=== PATIENT | female | born 1950 | race Caucasian/White ===

== ENCOUNTER 2018-11-06 10:47 | Outpatient (CLI) | payer MEDICARE, BC, SELFPAY ==
[2018-11-06 11:15] LABS: HCT 39.7 % (36.0-46.0); HGB 13.5 g/dL (12.0-15.5); Mean Corpuscular Hemoglobin 28.7 pg (27.0-33.0); Mean Corpuscular Volume 84.3 fL (80-95); Mean Platelet Volume 9.6 fL (8.0-11.0); Platelet Count 316 x1000/uL (130-400); RBC 4.71 m/cumm (4.00-5.20); RBC Distribution Width 11.4 % (11.7-14.6); White Blood Cell Count 4.16 k/cumm (4.4-10.8)
[2018-11-06 12:08] LABS: ALT 26 U/L (12-78); AST 18 U/L (15-37); Albumin 3.6 g/dL (3.4-5.0); Alkaline Phosphatase 111 U/L (46-116); Anion Gap 9.4 mmol/L (3-11); BUN 17 mg/dL (7-18); Bilirubin, Total 0.6 mg/dL (0.2-1.0); CO2 27.6 mmol/L (21.0-32.0); CREATININE 0.69 mg/dL (0.55-1.02); Chloride 106 mmol/L (98-107); Cholesterol 129 mg/dL (50-200); Glucose 92 mg/dL (70-100); HDL Cholesterol 58 mg/dL (40-60); LDL CHOLESTEROL 57 mg/dL (<100); Potassium 4.3 mmol/L (3.5-5.1); Sodium 143 mmol/L (136-145); TSH (W/Ref FT4) 0.01 uIU/mL (0.358-3.74); Total Protein 6.6 g/dL (6.4-8.2); Triglyceride 69 mg/dL (30-150)
[2018-11-06 12:54] LABS: FREE T4 2.53 ng/dL (0.76-1.46)
== END 2018-11-06 11:07 ==
PROVIDERS: PCP Nurse Practitioner; Visit Provider Nurse Practitioner
DX: I10 Essential (primary) hypertension (principal); E78.5 Hyperlipidemia, unspecified; E05.90 Thyrotoxicosis, unspecified without thyrotoxic crisis or storm; G80.9 Cerebral palsy, unspecified
CPT/HCPCS: 36415; 80053; 80061; 83721; 85027; 84439; 84443

== ENCOUNTER 2019-02-18 10:14 | Outpatient (CLI) | payer MEDICARE, BC, SELFPAY ==
[2019-02-18 14:31] LABS: TSH (W/Ref FT4) 1.82 uIU/mL (0.358-3.74)
== END 2019-02-18 10:34 ==
PROVIDERS: PCP Nurse Practitioner; Visit Provider Nurse Practitioner
DX: E05.90 Thyrotoxicosis, unspecified without thyrotoxic crisis or storm (principal)
CPT/HCPCS: 84443

== ENCOUNTER 2019-11-04 09:33 | Outpatient (CLI) | payer MEDICARE, BC, SELFPAY ==
[2019-11-04 11:15] LABS: ALT 22 U/L (14-59); AST 20 U/L (15-37); Albumin 4.1 g/dL (3.4-5.0); Alkaline Phosphatase 101 U/L (46-116); Anion Gap 7.7 mmol/L (3-11); BUN 30 mg/dL (7-18); Bilirubin, Total 0.7 mg/dL (0.2-1.0); CO2 28.3 mmol/L (21.0-32.0); CREATININE 0.75 mg/dL (0.55-1.02); Calcium 8.8 mg/dL (8.5-10.1); Calculated LDL 83 mg/dL (<100); Chloride 110 mmol/L (98-107); Cholesterol 168 mg/dL (<200); Glucose 93 mg/dL (74-106); HDL Cholesterol 66 mg/dL (40-60); Potassium 4.1 mmol/L (3.5-5.1); Sodium 146 mmol/L (136-145); TSH (W/Ref FT4) 4.11 uIU/mL (0.36-3.74); Total Protein 6.8 g/dL (6.4-8.2); Triglyceride 98 mg/dL (<150)
[2019-11-04 11:34] LABS: FREE T4 1.11 ng/dL (0.76-1.46)
== END 2019-11-04 09:53 ==
PROVIDERS: PCP Nurse Practitioner; Visit Provider Nurse Practitioner
DX: E05.90 Thyrotoxicosis, unspecified without thyrotoxic crisis or storm (principal); E78.5 Hyperlipidemia, unspecified; I10 Essential (primary) hypertension; E66.3 Overweight
CPT/HCPCS: 36415; 80053; 80061; 84439; 84443

== ENCOUNTER 2020-04-15 01:14 | Outpatient (CLI) | payer MEDICARE, BC, SELFPAY ==
[2020-04-15 10:27] LABS: TSH (W/Ref FT4) 5.99 uIU/mL (0.36-3.74)
[2020-04-15 10:46] LABS: FREE T4 0.98 ng/dL (0.76-1.46)
== END 2020-04-15 01:34 ==
PROVIDERS: PCP Nurse Practitioner; Visit Provider Nurse Practitioner
DX: E05.90 Thyrotoxicosis, unspecified without thyrotoxic crisis or storm (principal)
CPT/HCPCS: 36415; 84439; 84443

== ENCOUNTER 2020-07-08 01:07 | Outpatient (CLI) | payer MEDICARE, BC, SELFPAY ==
[2020-07-08 09:53] LABS: FREE T4 1.17 ng/dL (0.76-1.46); TSH 4.75 uIU/mL (0.36-3.74)
== END 2020-07-08 01:27 ==
PROVIDERS: PCP Nurse Practitioner; Visit Provider Nurse Practitioner
DX: E05.90 Thyrotoxicosis, unspecified without thyrotoxic crisis or storm (principal)
CPT/HCPCS: 36415; 84439; 84443

== ENCOUNTER 2021-01-07 02:12 | Outpatient (CLI) | payer MEDICARE, BC, SELFPAY ==
[2021-01-07 09:12] LABS: HCT 40.8 % (36.0-46.0); HGB 13.6 g/dL (11.2-15.7); MCH 29.2 pg (27.0-33.0); MCHC 33.3 % (32.0-36.0); MCV 87.6 fL (80-95); MPV 9.5 fL (8.0-11.0); Platelet Count 267 10^3/uL (130-400); RBC 4.66 10^6/uL (3.93-5.22); RDW 11.4 % (11.7-14.6); RDW-SD 36.7 fL
[2021-01-07 10:03] LABS: ALT 31 U/L (14-59); AST 21 U/L (15-37); Albumin 4.3 g/dL (3.4-5.0); Alkaline Phosphatase 96 U/L (46-116); Anion Gap 9.4 mmol/L (3-11); BUN 25 mg/dL (7-18); Bilirubin, Total 0.7 mg/dL (0.2-1.0); CO2 28.6 mmol/L (21.0-32.0); CREATININE 0.8 mg/dL (0.55-1.02); Calcium 8.9 mg/dL (8.5-10.1); Calculated LDL 79 mg/dL (<100); Chloride 105 mmol/L (98-107); Cholesterol 163 mg/dL (<200); Glucose 90 mg/dL (74-106); HDL Cholesterol 70 mg/dL (40-60); Potassium 4.2 mmol/L (3.5-5.1); Sodium 143 mmol/L (136-145); TSH 0.89 uIU/mL (0.36-3.74); Total Protein 6.8 g/dL (6.4-8.2); Triglyceride 72 mg/dL (<150)
[2021-01-07 10:22] LABS: FREE T4 1.37 ng/dL (0.76-1.46)
== END 2021-01-07 02:13 | disposition home or self-care (01) ==
LOC: LBO 02:12
PROVIDERS: PCP Nurse Practitioner; Visit Provider Nurse Practitioner
DX: E78.5 Hyperlipidemia, unspecified (principal); I10 Essential (primary) hypertension; E05.90 Thyrotoxicosis, unspecified without thyrotoxic crisis or storm; L80 Vitiligo; E66.3 Overweight
CPT/HCPCS: 36415; 80053; 80061; 85027; 84439; 84443

== ENCOUNTER 2022-01-14 02:27 | Outpatient (CLI) | payer MEDICARE, BC, SELFPAY ==
[2022-01-14 09:44] LABS: HCT 40.9 % (36.0-46.0); HGB 13.3 g/dL (11.2-15.7); MCH 29.2 pg (27.0-33.0); MCHC 32.5 % (32.0-36.0); MCV 89.9 fL (80-95); MPV 9.9 fL (8.0-11.0); Platelet Count 244 10^3/uL (130-400); RBC 4.55 10^6/uL (3.93-5.22); RDW 11.2 % (11.7-14.6); RDW-SD 37.1 fL; WBC 4.23 10^3/uL (4.4-10.8)
[2022-01-14 10:43] LABS: ALT 30 U/L (14-59); AST 17 U/L (15-37); Alkaline Phosphatase 97 U/L (46-116); Anion Gap 9.4 mmol/L (3-11); BUN 18 mg/dL (7-18); Bilirubin, Total 0.7 mg/dL (0.2-1.0); CO2 27.6 mmol/L (21.0-32.0); CREATININE 0.9 mg/dL (0.55-1.02); Calcium 8.8 mg/dL (8.5-10.1); Calculated LDL 79 mg/dL (<100); Chloride 106 mmol/L (98-107); Cholesterol 167 mg/dL (<200); Glucose 97 mg/dL (74-106); HDL Cholesterol 78 mg/dL (40-60); Sodium 143 mmol/L (136-145); TSH (W/Ref FT4) 2.49 uIU/mL (0.36-3.74); Total Protein 6.7 g/dL (6.4-8.2); Triglyceride 54 mg/dL (<150)
== END 2022-01-14 02:28 | disposition home or self-care (01) ==
LOC: LBO 02:27
PROVIDERS: PCP Nurse Practitioner; Visit Provider Nurse Practitioner
DX: I10 Essential (primary) hypertension (principal); E78.5 Hyperlipidemia, unspecified; E05.90 Thyrotoxicosis, unspecified without thyrotoxic crisis or storm; E66.3 Overweight
CPT/HCPCS: 36415; 80053; 80061; 85027; 84443

== ENCOUNTER → 2022-07-28 02:54 | Outpatient (CLI) | payer MEDICARE, BC, SELFPAY ==
--- NOTE | 2022-07-28 08:15 | DI.DEXA_ITS ---
Exam(s) XR DEXA BONE DENSITY W/WO KOBY EXAM: XR DEXA BONE DENSITY W/WO KOBY CLINICAL HISTORY: f/u osteopenia,SCREENING FOR OSTEOPOROSIS, Z78.0 TECHNIQUE: COMPARISON: No exams were available for comparison FINDINGS: Lateral Spine Image: Unremarkable. No compression deformities identified. Left hip: Total T-Score: -1.4 Total Z-Score: 0.4 T- and Z-scores: Findings are consistent with osteopenia. Lumbar Spine: Total T-Score: -1.0 Total Z-Score: 1.4 T- and Z-scores: Within normal limits. IMPRESSION: No evidence of osteoporosis.
== END ==
PROVIDERS: PCP Nurse Practitioner; Visit Provider Nurse Practitioner
DX: M85.88 Other specified disorders of bone density and structure, other site (principal); Z78.0 Asymptomatic menopausal state; Z13.820 Encounter for screening for osteoporosis
CPT/HCPCS: 77080

== ENCOUNTER 2023-01-12 01:51 | Outpatient (CLI) | payer MEDICARE, BC, SELFPAY ==
[2023-01-12 11:31] LABS: ALT 27 U/L (14-59); AST 17 U/L (15-37); Albumin 4.1 g/dL (3.4-5.0); Alkaline Phosphatase 112 U/L (46-116); BUN 20 mg/dL (7-18); Bilirubin, Total 0.6 mg/dL (0.2-1.0); CREATININE 0.8 mg/dL (0.55-1.02); Calcium 8.9 mg/dL (8.5-10.1); Calculated LDL 85 mg/dL (<100); Chloride 105 mmol/L (98-107); Cholesterol 176 mg/dL (<200); Estimated GFR 77.27 (mL/min/1.73m2); Glucose 92 mg/dL (74-106); HDL Cholesterol 74 mg/dL (40-60); Potassium 3.7 mmol/L (3.5-5.1); Sodium 142 mmol/L (136-145); TSH (W/Ref FT4) 3.43 uIU/mL (0.36-3.74); Total Protein 7.3 g/dL (6.4-8.2); Triglyceride 85 mg/dL (<150)
== END 2023-01-12 01:52 | disposition home or self-care (01) ==
PROVIDERS: PCP Nurse Practitioner; Visit Provider Nurse Practitioner
DX: I10 Essential (primary) hypertension (principal); E78.5 Hyperlipidemia, unspecified; E05.90 Thyrotoxicosis, unspecified without thyrotoxic crisis or storm; E66.3 Overweight
CPT/HCPCS: 36415; 80053; 80061; 84443

== ENCOUNTER 2023-02-12 11:31 | Emergency (ER) | payer MEDICARE, BC, SELFPAY ==
[2023-02-12 11:41] VITALS: BP 160/87; PULSE 107; RESP 18; TEMP 36.8; O2SAT 99
[2023-02-12 12:09] LABS: Bilirubin Negative (Negative); Blood Negative (Negative); Clarity Clear (Clear); Glucose Negative (Negative); Ketones Negative (Negative); Leukocyte Esterase Trace (Negative); Nitrite Negative (Negative); Urobilinogen 0.2 mg/dL (Up to 0.2); pH 5.5 (5-8)
[2023-02-12 12:21] LABS: Bacteria Rare HPF (Negative); C & S Indicated? Yes; Casts Negative LPF (Negative); Crystals Negative HPF (Negative); Epithelial Cells Few HPF (Negative); Mucus Negative (Negative); RBC 0-2 HPF (0-2)
--- NOTE | 2023-02-12 12:38 | W.ED.GENAD ---
Discharge Plan Disposition Patient Disposition: Home Condition: Stable Discharge Details Clinical Impression: Acute UTI Primary Care Provider: Kaelyn Portillo ED Provider: Andres Montes Home Meds and New Rx's Prescriptions: New nitrofurantoin monohyd/m-cryst [Macrobid] 100 mg capsule 100 mg PO Q12H 5 Days Qty: 10 0RF Rx Instructions: must administer with a meal/food Continued cholecalciferol (vitamin D3) 50 mcg (2,000 unit) capsule 50 mcg PO DAILY omeprazole 20 mg capsule,delayed release(DR/EC) 20 mg PO DAILY Qty: 90 3RF methimazole 5 mg tablet 5 mg PO DAILY Qty: 90 3RF multivitamin [Daily Multi-Vitamin] 1 EACH tablet 1 ea PO DAILY atorvastatin 10 mg tablet 10 mg PO DAILY Qty: 90 3RF losartan 50 mg tablet 50 mg PO DAILY Qty: 90 3RF naproxen sodium [Aleve] 220 mg capsule 220 mg PO BID PRNQty: 2 Discharge Instructions Instructions: Urinary Tract Infection in Women (ED) Additional Instructions: Please take your medication as prescribed and follow-up with your primary care provider later this week for recheck of symptoms. If you develop any new or significant worsening of symptoms feel free to return the emergency department for reassessment. Referrals: Kaelyn Portillo, [employer] [Primary Care Provider] - 5 days (for reassessment) Discharge Data Discharge Date/Time-TO BE ENTERED AT DEPARTURE: 02/12/23 12:44 Medical Decision Making Patient presenting to the emergency department for chief complaint of urinary symptoms over the past 4 days. Patient states urgency and some incontinence. Patient otherwise states generalized malaise and denies all other symptoms. Physical exam is unremarkable with no worrisome findings. Given patient have urinary symptoms we will check urinalysis. Urinalysis shows trace leukocyte esterase and WBCs of 5-10 with some bacteria present. Reflexive culture was ordered. I do feel that patient has clinical symptoms that also do match urinary tract infection so we will start patient on antibiotic. After discussion of diagnosis and plan of care patient has no further needs, questions, or concerns and states clear understanding to return to the emergency department for any worsening symptoms. This documentation was generated using [employer] system, please disregard any oddities of phrase or misspellings. HPI General Mode of arrival: ambulatory. Date/Time Provider Initiated Documentation: 02/12/23 12:00. Limitations to Documentation: no limitations. Information obtained by: patient and RN notes reviewed. History of Present Illness 72 year old F presents to the emergency department with the chief complaint of Urinary frequency, incontinence, described as moderate, Patient started experiencing this day(s) (4) and it has been constant. No relieving factors improve symptom(s), No exacerbating factors reported . Patient notes no other symptoms.. Patient did receive the following treatments prior to arrival, none Related Data Home Medications Medication Instructions Recorded Confirmed multivitamin (Daily Multi-Vitamin 1 ea PO DAILY 10/28/16 07/21/22 tablet) cholecalciferol (vitamin D3) 50 50 mcg PO DAILY 07/21/22 07/21/22 mcg (2,000 unit) capsule omeprazole 20 mg capsule,delayed 20 mg PO DAILY #90 caps 07/21/22 07/21/22 release atorvastatin 10 mg tablet 10 mg PO DAILY #90 tabs 11/08/22 losartan 50 mg tablet 50 mg PO DAILY #90 tab-caps 11/15/22 methimazole 5 mg tablet 5 mg PO DAILY #90 tabs 01/19/23 01/19/23 naproxen sodium 220 mg capsule 220 mg PO BID PRN ##2 01/19/23 (Aleve) nitrofurantoin 100 mg PO Q12H 5 days #10 caps 02/12/23 monohydrate/macrocrystals 100 mg capsule (Macrobid) Previous Rx's Medication Instructions Recorded omeprazole 20 mg capsule,delayed 20 mg PO DAILY #90 caps 07/21/22 release atorvastatin 10 mg tablet 10 mg PO DAILY #90 tabs 11/08/22 losartan 50 mg tablet 50 mg PO DAILY #90 tab-caps 11/15/22 methimazole 5 mg tablet 5 mg PO DAILY #90 tabs 01/19/23 nitrofurantoin 100 mg PO Q12H 5 days #10 caps 02/12/23 monohydrate/macrocrystals 100 mg capsule (Macrobid) Allergies Allergy/AdvReac Type Severity Reaction Status Date / Time lisinopril AdvReac Intermediate Cough Verified 01/19/23 08:10 codeine AdvReac Unknown intolerant Verified 01/19/23 08:10 sucralfate [From Carafate] AdvReac Unknown Intolerant Verified 01/19/23 08:10 General Stated Complaint: Urinary ELIAS: 3 Review of Systems Constitutional Constitutional: Denies body ache(s), Denies chills, Denies fever(s), Reports malaise and Denies weakness Gastrointestinal Gastrointestinal: Denies abdominal pain, Denies nausea and Denies vomiting Genitourinary Genitourinary: Reports as per HPI, Denies hematuria, Denies difficulty voiding, Reports post void dribbling, Denies dysuria, Reports urinary incontinence and Reports urinary urgency Neurologic Neurologic: Denies confusion and Denies weakness Psychiatric Psychiatric: Denies confusion PFSH All Active Problems Acute UTI (Acute) Bilateral retinoschisis (Acute) Colonoscopy refused (Acute) Mammogram declined (Acute) Cerebral palsy (Acute 10/28/16) ataxia Gastroesophageal reflux disease (Acute 04/22/16) Hyperlipidemia (Acute 03/15/12) PCEq 9.9%; LDL baseline 149 Hypertension (Acute 08/06/14) goal 140/90 Hyperthyroidism (Acute 08/06/14) Dr Finch manages Osteopenia (Acute 08/06/14) Dr Finch manages Overweight (Acute 08/06/14) Vitiligo (Acute 04/27/17) Social History Smoking/Tobacco Use Status: Never Smoking risk assessment performed?: Yes Alcohol Intake: never Substance use type: does not use Caregiver/Support person: No Household members: spouse Housing: house Number of Children: 0 Communication Needs: None Pets and animals: Yes Pets and animals: cat(s) Current gender identity: female What is your relationship status?: Panel score (0-1 are the most socially isolated patients): 1 What type of physical activity do you participate in: irregular exercise Duration: other Details: now that used to cart, has increased her activity w/ adl's. nothing routine Frequency: daily Seatbelt use: always Working smoke detector in home: Yes Fire extinguisher in home: Yes Carbon monox detector in home: Yes Firearms in home: Yes Firearms unloaded and locked: Yes Do you feel safe at home: Yes Exam Const General: cooperative and no acute distress Orientation: alert, awake and oriented x3 Resp Effort & Inspection: normal respiratory effort and able to speak in complete sentences Auscultation: clear to auscultation bilaterally Cardio Rate: regular rate Rhythm: regular rhythm Heart Sounds: S1 normal and S2 normal GI Palpation: nontender Back/Spine/Pelvis Back: no CVA tenderness Neuro General: patient alert, patient awake and patient oriented x3 Extrem General: capillary refill normal Course Vital Signs Vital signs: Vital Signs Temperature 36.8 C 02/12/23 11:41 Pulse 107 H 02/12/23 11:41 Respiratory Rate 18 02/12/23 11:41 Blood Pressure 160/87 H 02/12/23 11:41 Pulse Oximetry 99 02/12/23 11:41 Temperature 36.8 C 02/12/23 11:41 Temperature Source Skin 02/12/23 11:41 Pulse 107 H 02/12/23 11:41 Respiratory Rate 18 02/12/23 11:41 Blood Pressure 160/87 H 02/12/23 11:41 Blood Pressure Position Sitting 02/12/23 11:41 Pulse Oximetry 99 02/12/23 11:41 Oxygen Delivery Method Room Air 02/12/23 11:41 Oxygen Flow Rate 0 02/12/23 11:41 Pain Level 0 02/12/23 11:41 Lab/Test Results Lab/Test Results: 02/12/23 11:55 Urine - Reflex from Ua Urine Culture - Pending Laboratory Tests Range/Units 02/12/23 11:55 Urine Color (Yellow) Yellow Urine Clarity (Clear) Clear Urine pH (5-8) 5.5 Ur Specific [place] (1.005-1.025) 1.010 Urine Protein (Negative) mg/dL Negative Urine Ketones (Negative) mg/dL Negative Urine Blood (Negative) Negative Urine Nitrite (Negative) Negative Urine Bilirubin (Negative) Negative Urine Urobilinogen (Up to 0.2) mg/dL 0.2 Ur Leukocyte Esterase (Negative) Trace H Urine RBC (0-2) HPF 0-2 Urine WBC (0-5) HPF 5-10 Ur Epithelial Cells (Negative) HPF Few Urine Crystals (Negative) HPF Negative Urine Bacteria (Negative) HPF Rare Urine Casts (Negative) LPF Negative Urine Mucus (Negative) Negative Ur Culture Indicated? Yes Urine Glucose (Negative) mg/dL Negative
[2023-02-12 12:44] VITALS: BP 130/82; PULSE 80; RESP 18; TEMP 36.8; O2SAT 99
[2023-02-12] MEDS: MacroBID 100 MG CAP PO (12:44)
== END 2023-02-12 12:44 | disposition home or self-care (01) ==
PROVIDERS: Emergency Provider Nurse Practitioner Family; PCP Nurse Practitioner
DX: N39.0 Urinary tract infection, site not specified (principal)
CPT/HCPCS: 99283; 81003; 81015; 87086

== ENCOUNTER 2023-04-18 00:51 | Outpatient (CLI) | payer MEDICARE, BC, SELFPAY ==
--- NOTE | 2023-04-18 06:41 | DI.CT_ITS ---
Exam(s) CT ABDOMEN PELVIS W EXAM: CT ABDOMEN PELVIS W CLINICAL HISTORY: rectal bleeding,change in stools,k62.5 TECHNIQUE: Imaging Protocol: Axial computed tomography images with coronal and sagittal reformatted images were created and reviewed CONTRAST MATERIAL: Intravenous: Omnipaque 350 Contrast volume:100 mL Oral: Yes COMPARISON: No exams were available for comparison FINDINGS: ABDOMEN: Lung Bases: Small hiatal hernia. Liver: Normal density. There are few small round hypodensities in the liver. They are too small for further characterization, but likely reflect small cysts. No suspicious hepatic masses are seen. Portal, Superior Mesenteric, and Splenic Veins: Unremarkable. Gallbladder and Biliary Tract: No radiodense calculus or dilation. Pancreas: Normal density, no abnormal calcifications or inflammatory process. Spleen: Normal. Adrenals: No masses seen. Kidneys: Normal size, contour and axis. No radiodense stones or obstructive uropathy. No masses seen. Abdominal Aorta: Abdominal portion non-dilated. Atherosclerosis. Bowel: There is a moderate amount of stool in the rectal vault. There is diverticulosis seen in the colon but no evidence to suggest acute diverticulitis. There is a moderate amount of stool seen thro ughout the colon. There is no evidence of bowel obstruction or bowel wall thickening. The distal si gmoid colon is decompressed which may be due to underdistention. Appendix is unremarkable. Peritoneal Cavity: There is no ascites. Partially calcified soft tissue masses are seen in the left abdomen. The largest measures 2.9 x 0.9 cm. No free air. Lymph Nodes: Within normal limits. Bones: Within normal limits for the patient's age. There is a right convex curvature of the thoracol umbar spine. Soft Tissues: Unremarkable. PELVIS: Bladder: Symmetric distention, no gross wall thickening. Reproductive Organs: There is a cystic and solid mass in the right adnexa measuring 6.9 x 5.2 cm. Th e left ovary measures 2.6 x 1.9 cm. Lymph Nodes: Within normal limits. Bones: Within normal limits for the patient's age. IMPRESSION: 1. 6.9 x 5.2 cm cystic and solid right adnexal mass which is likely ovarian in origin. Neoplasm shou ld be considered. Correlation with pelvic ultrasound or MRI of the pelvis should be considered for f urther evaluation. 2. Diverticulosis of the colon without evidence of acute diverticulitis. 3. Moderate amount of stool in the colon and rectal vault. 4. Partially calcified mass is seen in the abdomen. Omental metastatic disease should be excluded in this patient. Unexpected findings RADIATION DOSE DELIVERED: 862.52mGy.cm Total DLP DATA REPOSITORY: All CT scans at this facility are submitted to the National Radiology Data Registry (NRDR) Dose Index Registry (DIR) with the [employer] (ACR). RADIATION OPTIMIZATION: All CT scans at this facility use at least one of these dose optimization te chniques: automated exposure control; mA and/or kV adjustment per patient size (includes targeted exa ms where dose is matched to clinical indication); or iterative reconstruction.
[2023-04-18 07:54] LABS: CREATININE 0.9 mg/dL (0.55-1.02); Estimated GFR 66.67 (mL/min/1.73m2)
[2023-04-18] MEDS: Barium Sulfate 2% W/V-Berry Smoothie 450 ML BTL PO (08:23)
[2023-04-18] MEDS: Omnipaque 350 MG/ML 500 ML BTL-Imaging package IJ (09:43)
[2023-04-18] MEDS: Normal Saline - Diluent 50 ML VIAL IJ (09:43)
[2023-04-18] MEDS: Normal Saline Flush 10 ML SYR IVP (09:46)
== END 2023-04-18 01:11 ==
LOC: DI 00:56
PROVIDERS: PCP Nurse Practitioner; Visit Provider Emergency Medicine
DX: K62.5 Hemorrhage of anus and rectum (principal); K57.30 Diverticulosis of large intestine without perforation or abscess without bleeding; C56.1 Malignant neoplasm of right ovary
CPT/HCPCS: 74177; 82565

== ENCOUNTER → 2023-07-31 02:00 | Outpatient (CLI) | payer MEDICARE, BC, SELFPAY ==
--- NOTE | 2023-07-31 09:00 | DI.US_ITS ---
Exam(s) US THYROID EXAM: US THYROID CLINICAL HISTORY: incidentally found nodule, E04.1. TECHNIQUE: Ultrasound thyroid performed using standard protocol. COMPARISON: No exams were available for comparison FINDINGS: ISTHMUS: 3 mm RIGHT LOBE: Size: 5.6 x 2.0 x 2.5 cm Echogenicity: Diffusely heterogeneous. Vascularity: Normal. Nodules: 2. 3.7 x 1.7 x 1.7 centimeter mixed cystic and solid lesion, isoechoic, not taller than wid e. No echogenic foci, smooth margins, TR 3. FNA could be considered. LEFT LOBE: Size: 5.8 x 2.1 x 2.5 cm Echogenicity: Diffusely heterogeneous. Vascularity: Normal. Nodules: 1. Lower pole. 2.8 x 2.6 x 2.1 centimeter solid nodule isoechoic, taller than wide, darlene h margins without echogenic foci, TR 4, FNA recommended. 3. Mid pole. 2.7 x 2.0 x 2.1 centimeter solid isoechoic nodule with smooth margins without echogeni c foci, TR 3, FNA could be considered. OTHER FINDINGS: None. IMPRESSION: Heterogeneous thyroid with multiple nodules. Due to size, FNA could be considered. DATA REPOSITORY:
== END ==
PROVIDERS: PCP Nurse Practitioner; Visit Provider Nurse Practitioner
DX: E04.1 Nontoxic single thyroid nodule (principal)
CPT/HCPCS: 76536

== ENCOUNTER 2023-08-29 03:05 | Outpatient (RCR) | payer MEDICARE, BC, SELFPAY ==
[2023-08-29 08:24] LABS: Abs Immature Grans 0.01 10^3/uL (0.0-0.06); Absolute Basophil Count 0.12 10^3/uL (0.0-0.2); Absolute Eosinophil Count 0.07 10^3/uL (0.0-0.7); Absolute Lymphocyte Count 1.81 10^3/uL (1.2-3.4); Absolute Monocyte Count 0.85 10^3/uL (0.1-0.8); Absolute Neutrophil Count 4.95 10^3/uL (1.2-6.7); Basophils % 1.5; Eosinophils % 0.9; HCT 35.3 % (36.0-46.0); HGB 11.2 g/dL (11.2-15.7); Immature Grans % 0.1; Lymphocytes % 23.2; MCH 26.3 pg (27.0-33.0); MCHC 31.7 % (32.0-36.0); MCV 83 fL (80-95); Monocytes % 10.9; Neutrophils % 63.4; RBC 4.26 10^6/uL (3.93-5.22); RDW 16.3 % (11.7-14.6); RDW-SD 48.4 fL; WBC 7.81 10^3/uL (4.4-10.8)
[2023-08-29] MEDS: Normal Saline Flush 10 ML SYR IVP (08:37)
[2023-08-29 08:44] LABS: ALT 17 U/L (14-59); AST 11 U/L (15-37); Albumin 3.1 g/dL (3.4-5.0); Alkaline Phosphatase 94 U/L (46-116); Anion Gap 11.1 mmol/L (3-11); BUN 22 mg/dL (7-18); Bilirubin, Total 0.4 mg/dL (0.2-1.0); CO2 23.9 mmol/L (21.0-32.0); CREATININE 1.1 mg/dL (0.55-1.02); Calcium 9.2 mg/dL (8.5-10.1); Chloride 103 mmol/L (98-107); Glucose 192 mg/dL (74-106); Potassium 3.9 mmol/L (3.5-5.1); Sodium 138 mmol/L (136-145); Total Protein 7.1 g/dL (6.4-8.2)
[2023-08-29 08:47] LABS: Diff Comment Diff Reviewed; Platelet Count 798 10^3/uL (130-400); RBC Morphology Normal
[2023-08-30 11:39] LABS: CA 125 8 U/mL (<30)
== END 2023-08-31 23:59 | disposition home or self-care (01) ==
LOC: INF 03:05
PROVIDERS: PCP Nurse Practitioner; Visit Provider Internal Medicine
DX: C56.9 Malignant neoplasm of unspecified ovary (principal); Z45.2 Encounter for adjustment and management of vascular access device
CPT/HCPCS: 36591; 80053; 86304; 85025

== ENCOUNTER → 2023-09-20 13:21 | Outpatient (BNVA) | payer MEDICARE, BC, SELFPAY | PROVIDERS: PCP Nurse Practitioner; Referring Provider Nurse Practitioner; Visit Provider Physical Therapy Assistant | DX: T81.31XD Disruption of external operation (surgical) wound, not elsewhere classified, subsequent encounter (principal); Z98.890 Other specified postprocedural states; Z90.710 Acquired absence of both cervix and uterus | CPT/HCPCS: 99214 ==

== ENCOUNTER 2023-09-26 01:45 | Outpatient (RCR) | payer MEDICARE, BC, SELFPAY ==
[2023-09-26 08:09] LABS: Abs Immature Grans 0.01 10^3/uL (0.0-0.06); Absolute Basophil Count 0.07 10^3/uL (0.0-0.2); Absolute Eosinophil Count 0.22 10^3/uL (0.0-0.7); Absolute Lymphocyte Count 1.78 10^3/uL (1.2-3.4); Absolute Monocyte Count 0.89 10^3/uL (0.1-0.8); Absolute Neutrophil Count 3.38 10^3/uL (1.2-6.7); Basophils % 1.1; Eosinophils % 3.5; HCT 34.5 % (36.0-46.0); Immature Grans % 0.2; MCH 26.4 pg (27.0-33.0); MCHC 31.9 % (32.0-36.0); MCV 83 fL (80-95); MPV 8.9 fL (8.0-11.0); Neutrophils % 53.2; Platelet Count 516 10^3/uL (130-400); RBC 4.16 10^6/uL (3.93-5.22); RDW 19.9 % (11.7-14.6); RDW-SD 60.1 fL; WBC 6.35 10^3/uL (4.4-10.8)
[2023-09-26] MEDS: Normal Saline Flush 10 ML SYR IVP (08:22)
[2023-09-26 08:24] LABS: ALT 15 U/L (14-59); AST 11 U/L (15-37); Albumin 3.1 g/dL (3.4-5.0); Alkaline Phosphatase 102 U/L (46-116); Anion Gap 10.1 mmol/L (3-11); BUN 18 mg/dL (7-18); Bilirubin, Total 0.4 mg/dL (0.2-1.0); CO2 25.9 mmol/L (21.0-32.0); Calcium 8.8 mg/dL (8.5-10.1); Chloride 104 mmol/L (98-107); Estimated GFR 58.75 (mL/min/1.73m2); Glucose 142 mg/dL (74-106); Potassium 3.7 mmol/L (3.5-5.1); Sodium 140 mmol/L (136-145); Total Protein 7.3 g/dL (6.4-8.2)
[2023-09-26 17:56] LABS: CA 125 7 U/mL (<30)
== END 2023-10-01 23:59 | disposition home or self-care (01) ==
LOC: INF 01:45
PROVIDERS: PCP Nurse Practitioner; Visit Provider Internal Medicine
DX: C56.9 Malignant neoplasm of unspecified ovary (principal); Z45.2 Encounter for adjustment and management of vascular access device
CPT/HCPCS: 36591; 80053; 86304; 85025

== ENCOUNTER → 2023-10-03 10:53 | Outpatient (BNVA) | payer MEDICARE, BC, SELFPAY | PROVIDERS: PCP Nurse Practitioner; Referring Provider Nurse Practitioner; Visit Provider Physical Therapy Assistant | DX: T81.31XD Disruption of external operation (surgical) wound, not elsewhere classified, subsequent encounter (principal); Z90.710 Acquired absence of both cervix and uterus; Z90.722 Acquired absence of ovaries, bilateral; Z90.79 Acquired absence of other genital organ(s) | CPT/HCPCS: 99214 ==

== ENCOUNTER 2023-10-03 11:14 | Outpatient (REF) | payer MEDICARE, BC, SELFPAY | END 2023-10-03 11:15 | disposition home or self-care (01) | LOC: LBN 11:14 | PROVIDERS: PCP Nurse Practitioner; Visit Provider Physical Therapy Assistant | DX: T81.31XA Disruption of external operation (surgical) wound, not elsewhere classified, initial encounter (principal); B95.61 Methicillin susceptible Staphylococcus aureus infection as the cause of diseases classified elsewhere | CPT/HCPCS: 87077; 87070; 87075; 87186; 87205 ==

== ENCOUNTER → 2023-10-12 01:38 | Outpatient (CLI) | payer MEDICARE, BC, SELFPAY ==
[2023-10-12] MEDS: Breeza Beverage 473 ML BTL 946 ML PO (09:12)
[2023-10-12] MEDS: Omnipaque 350 MG/ML 50 ML BTL IJ (09:13)
[2023-10-12] MEDS: Omnipaque 350 MG/ML 500 ML BTL-Imaging package 100 ML IJ (11:04)
[2023-10-12] MEDS: Normal Saline - Diluent 50 ML VIAL IJ (11:04)
--- NOTE | 2023-10-12 11:10 | DI.CT_ITS ---
Exam(s) CT ABDOMEN PELVIS W EXAM: CT ABDOMEN PELVIS W CLINICAL HISTORY: Draining wound,? abscess vs fistula,S/PTAH,BSO,[id number]. TECHNIQUE: Imaging Protocol: Axial computed tomography images with coronal and sagittal reformatted images were created and reviewed CONTRAST MATERIAL: Intravenous: Omnipaque-350 100cc Oral: Yes. Oral contrast was also administered for bowel opacification. COMPARISON: CT CT ABDOMEN PELVIS W from 04/18/2023 FINDINGS: VISUALIZED LUNG BASES: No nodules nor pleural effusions evident. ABDOMEN: There is no ascites. LIVER: Again noted is a small benign cyst in the liver measuring 7 mm, unchanged. No new focal hepat ic lesions nor dilated intrahepatic ducts. GALLBLADDER/BILIARY: No obvious gallbladder pathology. CBD is not dilated. PANCREAS: There is mass in the pancreatic tail which measures 0.7 x 1.7 x 1.7 cm. This is uniformly hyperdense.. Average density 75 HU no other pancreatic lesions identified. The pancreatic duct is n ot dilated. No peripancreatic fluid collections. SPLEEN: The spleen is now surgically absent. ADRENALS: There are no new significant adrenal masses. KIDNEYS:No cysts evident. No solid renal masses. No calculi nor hydronephrosis.. ABDOMINAL AORTA: Abdominal aorta is not enlarged. LYMPH NODES:There is no retroperitoneal nor paraaortic adenopathy. ABDOMINAL WALL: There has been interval surgery.. There is an abnormal fluid collection in the anter ior abdominal wall slightly left of center and in the subcutaneous tissues. Consistent with probable abscess. This involves the anterior abdominal wall medial left rectus musculature and extends into the subcutaneous fat tissue layer. Appears multicompartmental. Appears to communicate to the region of the umbilicus. The cephalocaudal length of this combined induration and abscess abscess measures approximately 9 cm., as measured on the sagittal reconstructed images. Contains some gas. Subjacen t opacified small bowel loops appear unremarkable and there is no bowel obstruction. GI: No bowel obstruction or free air. PELVIS: GI: No evidence of appendicitis.No evidence of sigmoid diverticulitis. LYMPH NODES: There is no intrapelvic nor inguinal adenopathy. REPRODUCTIVE: Uterus surgically absent. No abnormal adnexal masses. URINARY BLADDER: Urinary bladder wall is grossly thickened and has appearance of severe cystitis. Th ere is no gas in the bladder wall evident. OSSEOUS: No fractures and no significant osseous lesions. IMPRESSION: 1. There is anterior abdominal wall induration an abscess as described above involving the left rectu s muscle and extending into the subcutaneous fat and exhibiting maximum width of 3 cm and cephalocaud al length of approximately 9 cm. 2. 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 3. There is a round uniformly hyperdense mass in the distal most aspect of the pancreatic tail measur ing 1.7 by 1.7 x 1.7 cm. Either hemorrhagic cyst or neoplasm. No other focal pancreatic findings. Pancreatic duct is not dilated. No peripancreatic fluid collections. No pancreatic calcifications. 4. Findings in the urinary bladder consistent with severe cystitis. Previous hysterectomy. No abnormal masses in the pelvis. RADIATION DOSE DELIVERED: 1,150.42mGy.cm Total DLP DATA REPOSITORY: All CT scans at this facility are submitted to the National Radiology Data Registry (NRDR) Dose Index Registry (DIR) with the [employer] (ACR). RADIATION OPTIMIZATION: All CT scans at this facility use at least one of these dose optimization te chniques: automated exposure control; mA and/or kV adjustment per patient size (includes targeted exa ms where dose is matched to clinical indication); or iterative reconstruction.
== END ==
PROVIDERS: PCP Nurse Practitioner; Visit Provider Physical Therapy Assistant
DX: L02.211 Cutaneous abscess of abdominal wall (principal); Z90.81 Acquired absence of spleen; N30.00 Acute cystitis without hematuria
CPT/HCPCS: 74177; Q9967

== ENCOUNTER 2023-10-13 16:44 | Outpatient (REF) | payer MEDICARE, BC, SELFPAY ==
[2023-10-13 13:36] LABS: Bilirubin Negative (Negative); Blood Moderate (Negative); Clarity Sl Cloudy (Clear); Glucose Negative (Negative); Ketones Negative (Negative); Leukocyte Esterase Moderate (Negative); Nitrite Negative (Negative); Specific Gravity <= 1.005 (1.005-1.025); Urobilinogen 0.2 mg/dL (Up to 0.2); pH 6.5 (5-8)
[2023-10-13 13:47] LABS: Epithelial Cells Rare HPF (Negative); RBC 20-50 HPF (0-2); WBC 20-50 HPF (0-5)
[2023-10-13 13:48] LABS: Bacteria Moderate HPF (Negative); C & S Indicated? Yes; Casts Negative LPF (Negative); Crystals Few Amorphous HPF (Negative); Mucus Trace (Negative)
== END 2023-10-13 16:45 | disposition home or self-care (01) ==
LOC: LBN 16:44
PROVIDERS: PCP Nurse Practitioner; Visit Provider Physical Therapy Assistant
DX: N30.00 Acute cystitis without hematuria (principal); R82.998 Other abnormal findings in urine
CPT/HCPCS: 81003; 81015; 87086

== ENCOUNTER → 2023-10-17 11:54 | Outpatient (BNVA) | payer MEDICARE, BC, SELFPAY | PROVIDERS: PCP Nurse Practitioner; Referring Provider Nurse Practitioner; Visit Provider Physical Therapy Assistant | DX: Z01.818 Encounter for other preprocedural examination (principal) ==

== ENCOUNTER 2023-10-20 06:15 | Day surgery (SDC) | payer MEDICARE, BC, SELFPAY ==
--- NOTE | 2023-10-19 14:21 | W.PM.DSUDISC ---
Date of service: 10/20/23 Time of Service: 10:45 Discharge Plan Disposition Patient Disposition: Home Condition: Good Discharge Details Reason For Visit: Abdominal wall abscess Attending Provider: Eduar Campbell Primary Care Provider: Kaelyn Portillo Home Meds and New Rx's Prescriptions: New tramadol 50 mg tablet 50 mg PO Q8H PRNQty: 15 0RF Rx Instructions: Take 1 tablet by mouth if needed for more severe pain. Do not drive while using this medication. Continued losartan 50 mg tablet 50 mg PO DAILY Qty: 90 0RF cholecalciferol (vitamin D3) 50 mcg (2,000 unit) capsule 50 mcg PO DAILY methimazole 5 mg tablet 5 mg PO DAILY Qty: 90 3RF Bexsero 50-50-50-25 mcg/0.5 mL syringe 0.5 ml IM ONCE Qty: 0.5 0RF Rx Instructions: Pharmacy: please administer Menveo C-[id number]-135-Dip (PF) 10-5 mcg/0.5 mL solution 0.5 ml IM ONCE Qty: 0.5 0RF Rx Instructions: Pharmacy: please administer multivitamin [Daily Multi-Vitamin] 1 EACH tablet 1 ea PO DAILY atorvastatin 10 mg tablet 10 mg PO DAILY Qty: 90 3RF naproxen sodium [Aleve] 220 mg capsule 220 mg PO BID PRNQty: 2 cefpodoxime 200 mg tablet 200 mg PO BID Rx Instructions: must administer with a meal/food metronidazole 500 mg tablet 500 mg PO BID docusate sodium 100 mg capsule 100 mg PO BID PRN (Reason: constipation) Desitin 40 % paste 1 applic topical QD-BID Rx Instructions: To affected area Discharge Instructions Additional Instructions: Sheila, we were able to drain the infected collection in your belly wall today just like we planned. Everything went very smoothly. Like we talked about afterwards, we did use a special vacuum dressing to help kick start some healing, and give us a little time to see how this responds. You should not have to do anything special with this dressing until next week. You can shower with it, I do any of the things that you otherwise enjoy doing. If you receive any supplies from the dressing company in the mail before your office visit, please be sure to bring them with you to the office. I am sorry that the pump itself is a little bit cumbersome, but hopefully it will not be too bad. I do think it will help with the wound overall. I will keep an eye out for the reports looking for bacteria in the wound, and let you know in the meantime, if we need to add any antibiotics. However, I do not expect any drastic changes before next week. You are welcome to use heating pads and ice packs on your belly wall if that helps with any of your discomfort. Tylenol, ibuprofen, and any other [id number] medications are all fine to use to help with any pain that you might experience in the days to come. I also put in a prescription for a medication called tramadol. You can pick this up and keep it just in case the other medicines are not enough. Stand Alone Forms: Anesthesia Discharge Inst., Anes.Nerve Block Instructions, Lelia Ford ([facility]) Referrals: Eduar Campbell MD [ [facility] STAFF PHYSICIAN] - Activity:: Activity as Tolerated Diet:: As Tolerated Discharge Orders Discharge Orders: Discharge Order (Routine); Ordered 10/19/23 Ordered By: Eduar Campbell DS: Diagnosis Discharge Diagnosis (1) Wound disruption, post-op, skin: Status: Acute Asessment and Plan: Status post incision, drainage and debridement; follow-up in the office next week
--- NOTE | 2023-10-19 14:22 | W.PM.OP ---
Date of service: 10/20/23 Time of Service: 09:21 Operative Note Operative Note DATE OF PROCEDURE: 10/20/23 PRE-OP DIAGNOSIS: Abdominal wall abscess Abdominal wall abscess, with possible infected mesh PROCEDURE: Incision and drainage, and debridement of abdominal wall abscess cavity with tissue for Gram stain and culture. Application of negative pressure wound therapy SURGEON: Eduar Campbell [employer] [facility] MANAGER: Uyen Kendall ANESTHESIA TYPE: General LMA/ETT Refer to Anesthesia Record ESTIMATED BLOOD LOSS: 50 PATHOLOGY: other (Abdominal abscess for Gram stain and culture) COMPLICATIONS: None Patient was transported to: PACU Patient's condition: stable Implants: [employer] negative pressure wound therapy with single black sponge Indications: Sheila is a 73-year-old woman who underwent laparotomy for ovarian cancer. As part of that operation, she also underwent appendectomy and what sounds like a low anterior resection. As best I can tell, her postoperative course was complicated by an anastomotic leak that was treated with total parenteral nutrition and antibiotics. In the weeks followed, she had a chronic nonhealing wound of her surgical site. She underwent a CAT scan of the abdomen and pelvis that demonstrated an abdominal wall abscess cavity. Findings: Approximately 13 cm x 8 cm x 4 cm abscess cavity of the anterior abdominal wall with suspected infected polypropylene material Procedure Description: After the induction of general endotracheal anesthesia, and bilateral tap blocks by the anesthesia team, I prepped and draped the anterior abdominal wall in the usual fashion. I incised the wound just around the umbilicus with a scalpel, and gently dissected down into the abscess cavity. Once I could clearly see into the abscess pocket, I gently inserted my finger and probes down along the inferior margin. It tracked well underneath the skin, and what seem to be superficial to the fascia. I then incised the skin along this line, which was mostly the inferior portion of the previous surgical incision. I dissected down through healthy subcutaneous fat into the abscess cavity. The floor of the pocket appeared to be disintegrating polypropylene. It seemed to be a greater quantity than I would expect for Maxon or PDS fascial closure stitches. Furthermore, it was quite fibrous, and gave the appearance of a polypropylene mesh. I debrided as much of this as possible back to the edges where it appeared to become more incorporated into the soft tissue. It was impossible to tell if this was actual fascia, or if perhaps it was superficial or deep to otherwise disintegrated fascia. The floor of the cavity was quite smooth, and again felt like I would expect from some type of implanted substrate. There was a small amount of tracking that was a little more cephalad under the incision as well. I opened the skin and subcutaneous tissues here to ensure that the base of the wound was completely opened. I irrigated it copiously. I did not see any signs of succus that would suggest an enterocutaneous fistula. After irrigation, I used a Versajet on the #9 setting to debride as much abnormal tissue as I could. Prior to this, I did sharply excise some of the surrounding soft tissue for Gram stain and culture. Once the wound was all clean, irrigated again, and carefully examined for hemostasis. There were a few punctate areas that required electrocautery in the subcutaneous fat. Otherwise it was no worrisome bleeding. Given the uncertainty uncertainty of what exactly is happening here, I felt the safest thing to do is apply negative pressure wound therapy and see what the culture data demonstrates. Therefore, using a [employer] prepackaged negative pressure set up, I cut a sponge to fit the wound. It measured approximately 13 cm long by 8 cm wide by 4 cm deep. The sponge was laid into the cavity, and the other components were applied according to the gear grinder's instructions. The device was set up at -125 mmHg where the pressure, and great care was taken to spare the healthy skin around the defect. Negative pressure was applied as expected, there was no evidence of any leak. Patient was then allowed awaken from anesthesia and transferred to the recovery unit.
[2023-10-20] VITALS (9 sets, daily range): BP systolic 125–166; BP diastolic 72–95; PULSE 82–116; RESP 9–20; TEMP 36–36.4; O2SAT 96–98; BMI 26.4
--- NOTE | 2023-10-20 06:23 | ANES.PREOP_ITS ---
General Info Date of Service Date Performed: 10/20/23 Height: 5 ft 5 in Weight: 72.121 kg Body Mass Index (BMI): 26.4 Surgical Procedure: Operation Date: 10/20/23 07:40 Proposed Procedure Side Surgeon p I&D of Abscess within Abdominal Wall/Laparotomy Incision, Possible Wound VAC Placement Eduar Campbell MD Meds Allergies and Home Medications Allergies Allergy/AdvReac Type Severity Reaction Status Date / Time lisinopril AdvReac Intermediate Cough Verified 10/20/23 06:46 codeine AdvReac Unknown intolerant Verified 10/20/23 06:46 sucralfate [From Carafate] AdvReac Unknown Intolerant Verified 10/20/23 06:46 Home Medication Medication Instructions Recorded multivitamin (Daily Multi-Vitamin 1 ea PO DAILY 10/28/16 tablet) cholecalciferol (vitamin D3) 50 50 mcg PO DAILY 07/21/22 mcg (2,000 unit) capsule atorvastatin 10 mg tablet 10 mg PO DAILY #90 tabs 11/08/22 methimazole 5 mg tablet 5 mg PO DAILY #90 tabs 01/19/23 naproxen sodium 220 mg capsule 220 mg PO BID PRN ##2 01/19/23 (Aleve) cefpodoxime 200 mg tablet 200 mg PO BID 06/30/23 docusate sodium 100 mg capsule 100 mg PO BID PRN constipation 06/30/23 metronidazole 500 mg tablet 500 mg PO BID 06/30/23 zinc oxide-cod liver oil 40 % 1 applic topical QD-BID 06/30/23 topical paste (Desitin) mening vac A,C,Y,W135 dip (PF) 10 0.5 ml IM ONCE #0.5 mL 07/25/23 mcg-5 mcg/0.5 mL IM solution (Menveo A-M-U-W-135-Dip (PF)) meningococcal B vac,4-cmp 50 0.5 ml IM ONCE #0.5 mL 07/25/23 mcg-50 mcg-50 mcg-25 mcg/0.5mL IM syringe (Bexsero) losartan 50 mg tablet 50 mg PO DAILY #90 tab-caps 10/19/23 Current Visit Medications: Current Medications Generic Name Dose Route Start Last Admin Trade Name Freq PRN Reason Stop Dose Admin Acetaminophen 1,000 mg 10/20/23 06:00 Acetaminophen 500 Mg Tab PO 10/20/23 23:59 PREOP TRANG Celecoxib 200 mg 10/20/23 06:00 Celecoxib 200 Mg Cap PO 10/20/23 23:59 PREOP TRANG Gabapentin 300 mg 10/20/23 06:00 Gabapentin 300 Mg Cap PO 10/20/23 23:59 PREOP TRANG Ringer's Solution 1,000 mls @ 80 mls/hr 10/20/23 06:00 IV 10/20/23 23:59 INFUSION [facility] Cefazolin Sodium/Dextrose 2 gm in 50 mls @ 100 mls/hr 10/20/23 06:00 Ancef Duplex IVPB 10/20/23 23:59 PREOP [facility] IV Miscellaneous Supplies 1 each 10/20/23 06:00 Iv Access IV 10/20/23 23:59 DIRECTED TRANG Morphine Sulfate 2 mg 10/19/23 14:23 Morphine 4 Mg/Ml Syr IVP 11/18/23 14:22 Q1H PRN PRN Sodium Chloride 0 ml 10/20/23 06:00 Normal Saline Flush 10 Ml Syr IV 10/20/23 23:59 PRN PRN Sodium Chloride 0 ml 10/20/23 06:00 Normal Saline 10 Ml Vial IJ 10/20/23 23:59 DIRECTED PRN Sterile Water 0 ml 10/20/23 06:00 Water,Injection,Sterile 10 Ml Vial IJ 10/20/23 23:59 DIRECTED PRN Tramadol HCl 100 mg 10/19/23 14:23 Tramadol 50 Mg Tab PO 11/18/23 14:22 Q6H PRN PRN Pain PFSH Active Problems Active Problems: Problem Status Onset Code Wound disruption, post-op, skin T81.31XA S/P TURNER-BSO Z90.710, Z90.722, Z90.79 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) History of hysterectomy with bilateral oophorectomy (06/08/23) [facility] laparoscopic Tobacco Smoking/Tobacco Use Status: Never Alcohol Alcohol Intake: never Substance Use Substance use type: does not use Vital Signs and Lab Results Lab Results Blood Type / Crossmatch: No Data to Display Complete Blood Count: White Blood Count 6.35 10^3/uL (4.4-10.8) 09/26/23 07:55 Red Blood Count 4.16 10^6/uL (3.93-5.22) 09/26/23 07:55 Hemoglobin 11.0 g/dL (11.2-15.7) L 09/26/23 07:55 Hematocrit 34.5 % (36.0-46.0) L 09/26/23 07:55 Platelet Count 516 10^3/uL (130-400) H 09/26/23 07:55 Complete Metabolic Panel: Sodium 140 mmol/L (136-145) 09/26/23 07:55 Potassium 3.7 mmol/L (3.5-5.1) 09/26/23 07:55 Chloride 104 mmol/L (98-107) 09/26/23 07:55 Carbon Dioxide 25.9 mmol/L (21.0-32.0) 09/26/23 07:55 BUN 18 mg/dL (7-18) 09/26/23 07:55 Creatinine 1.0 mg/dL (0.55-1.02) 09/26/23 07:55 Est GFR (CKD-EPI 2020) 58.75 (mL/min/1.73m2) 09/26/23 07:55 Calcium 8.8 mg/dL (8.5-10.1) 09/26/23 07:55 Albumin 3.1 g/dL (3.4-5.0) L 09/26/23 07:55 Glucose 142 mg/dL (74-106) H 09/26/23 07:55 Liver Function Panel: Alanine Aminotransferase (ALT/SGPT) 15 U/L (14-59) 09/26/23 07: 55 Aspartate Amino Transf (AST/SGOT) 11 U/L (15-37) L 09/26/23 07: 55 Coagulation Panel: No Data to Display Cardiac Panel: No Data to Display Arterial Blood Gas: No Data to Display Venous Blood Gas: No Data to Display Pancreas Panel: No Data to Display Thyroid Panel: No Data to Display Infectious Disease: No Data to Display Blood Cultures: No Data to Display Toxicology Panel: No Data to Display Imaging and Studies Imaging and Studies Study information below may be from another EMR and interpreted by another provider. Please see original notes in EMR for more complete details. Other Study Summary:: past CTs of abdomen/pelvis and U/S thyroid reviewed and results in chart Anesthesia Assessment and Plan Anesthesia History Personal History: No History of Anesthesia Complications Family History: No Family History of Anesthesia Complications Exercise Tolerance Exercise Tolerance: Metabolic Equivalents<4 Pertinent Negatives Pertinent Negatives: No Symptoms of GERD, No Major Cardiovascular Symptoms or Complaints, No Major Pulmonary Symptoms or Complaints and No History of CVA/TIA Cardiac & Pulmonary Exam Cardiac Exam: Normal S1/S2 Heart Sounds Pulmonary Exam: Clear Bilateral Breath Sounds Implantable Cardiac Device Does patient have a Pacemaker or an ICD?: No Airway Exam Known Difficult Airway: No Mallampati Class: 3 Mouth Opening: Normal (> 3cm) Thyromental Distance: Less than 3 cm Neck Range of Motion: Full ROM Neck Circumference: Normal Teeth Condition: Normal Dentition ASA Classification ASA Score: ASA 3 (Urgent case) Emergency Case?: No NPO Status NPO Status: NPO Clears >2 hours, Solids >8 hours Anesthesia Plan Resuscitation Status: Full Code Anesthesia Technique: General Anesthesia Airway Planned: Endotracheal Tube Pain Management: Surgeon and patient request nerve block (Bilateral TAPs) Monitors Used: Standard Monitors and SedLine
[2023-10-20] MEDS: Acetaminophen 500 MG TAB 1000 MG PO (06:42)
[2023-10-20] MEDS: Gabapentin 300 MG CAP PO (06:43)
[2023-10-20] MEDS: Celecoxib 200 MG CAP PO (06:43)
[2023-10-20] MEDS: Lactated Ringers 1,000 ML 80 ML IV (07:25)
[2023-10-20] MEDS: ceFAZolin 2 GM/50 ML BAG IVPB (08:15)
--- NOTE | 2023-10-20 08:33 | W.ANESNERVE ---
Nerve Block Single Injection Procedure Date and Time Date Performed: 10/20/23 Procedure Start: 07:54 Location Where Procedure Performed Procedure Location: Operating Room Procedure Stop: 08:15 Reason Performed: Postoperative Analgesia Requesting Provider: Eduar Campbell Timeout Performed Timeout Performed: Yes Monitoring Used ECG, Blood Pressure, SpO2 and ETCO2 Sterility Sterility: Hand Hygiene, Surgical Cap, Surgical Mask, Sterile Gloves and Chlorhexidine Sedation Given During Procedure Sedation Given (Indicate Dose Given): No Sedation given Patient Mental Status Patient Mental Status: Performed under general anesthesia Nerve Block 1st Nerve Block: Laterality: Bilateral Block Type: TAP Bilateral Ultrasound Image Saved?: Yes Needle / Catheter Used: 100mm SonoPlex II Local Anesthetic Bolus (Indicate Dose Given): Injected in 3-5ml increments after negative blood aspiration, Half of Total block solution given into each side, Bupivacaine 0.25% Dose:: 40 ml and Exparel Dose:: 20 ml Additives (Indicate Dose Given): Normal Saline (for hydrodissection) Ultrasound: Sterile probe cover and gel used Nerve Stimulator: Not Used Paresthesia: None Procedure Tolerated: No Complications and Patient tolerated well Procedure Outcome: Successful Procedure Comment: DAREN Roberson assisted but did not fully perform the block. US image was difficult and washed out, as was unclear Cipriano Schumacher, took over. Attempted to improve with change in settings but still technically difficult block. Performed By: Alexander Abraham
--- NOTE | 2023-10-20 09:48 | W.ANESPOSTOP ---
Postoperative Evaluation Date, Time and Location Date Performed: 10/20/23 Time Performed: 10:30 Patient Location: Day Surgery Unit Vital Signs Most Recent Imported Vital Signs: Most Recent Vital Signs Temp Pulse Resp BP Pulse Ox 36.4 C L 85 20 153/91 H 97 10/20/23 09:44 10/20/23 09:44 10/20/23 09:44 10/20/23 09:44 10/20/23 09:44 Pain Score Most Recent Pain Score: Most Recent Pain Score Pain Level 0 10/20/23 06:30 Assessment Mental Status: Awake (Alert & Oriented to Patient Baseline) Airway and Respiratory Function: Patent airway with normal (patient baseline) respiratory exam Cardiovascular Function: Hemodynamically Stable Hydration Status: Adequately Hydrated Nausea & Vomiting: No Nausea or Vomiting Pain: Pain is tolerable per patient Peripheral Nerve Block: Regional nerve block not resolved at time of post operative discharge
== END 2023-10-20 15:58 | disposition home or self-care (01) ==
LOC: SUR 06:15
PROVIDERS: PCP Nurse Practitioner; Visit Provider Surgery
PROC: (CPT 10061; principal; 2023-10-20 07:30)
DX: T81.42XA Infection following a procedure, deep incisional surgical site, initial encounter (principal); T81.31XA Disruption of external operation (surgical) wound, not elsewhere classified, initial encounter
CPT/HCPCS: 10061; 11042; 87077; 87070; 87075; 87186; 87205; C9290; J0665; J0690; J1100; J2371; J2405; J2704

== ENCOUNTER → 2023-10-24 10:00 | Outpatient (BNVA) | payer MEDICARE, BC, SELFPAY | PROVIDERS: PCP Nurse Practitioner; Referring Provider Nurse Practitioner; Visit Provider Surgery | DX: Z51.89 Encounter for other specified aftercare (principal) | CPT/HCPCS: 97606 ==

== ENCOUNTER → 2023-11-01 10:35 | Outpatient (BNVA) | payer MEDICARE, BC, SELFPAY | PROVIDERS: PCP Nurse Practitioner; Referring Provider Nurse Practitioner; Visit Provider Surgery | DX: T81.31XD Disruption of external operation (surgical) wound, not elsewhere classified, subsequent encounter (principal) | CPT/HCPCS: 97605; 99214 ==

== ENCOUNTER 2023-11-01 12:16 | Outpatient (RCR) | payer MEDICARE, BC, SELFPAY ==
[2023-11-01] MEDS: Normal Saline Flush 10 ML SYR IVP (12:28)
== END 2023-11-01 23:59 | disposition home or self-care (01) ==
LOC: INF 12:16
PROVIDERS: PCP Nurse Practitioner; Visit Provider Internal Medicine
DX: C56.9 Malignant neoplasm of unspecified ovary (principal)
CPT/HCPCS: 96523; 97605; 99214

== ENCOUNTER → 2023-11-08 13:23 | Outpatient (BNVA) | payer MEDICARE, BC, SELFPAY | PROVIDERS: PCP Nurse Practitioner; Visit Provider Surgery | DX: T81.31XD Disruption of external operation (surgical) wound, not elsewhere classified, subsequent encounter (principal) | CPT/HCPCS: 97605 ==

== ENCOUNTER → 2023-11-15 08:52 | Outpatient (BNVA) | payer MEDICARE, BC, SELFPAY | PROVIDERS: PCP Nurse Practitioner; Referring Provider Nurse Practitioner; Visit Provider Physical Therapy Assistant | DX: Z51.89 Encounter for other specified aftercare (principal) | CPT/HCPCS: 97605 ==

== ENCOUNTER 2023-11-21 04:57 | Outpatient (RCR) | payer MEDICARE, BC, SELFPAY ==
[2023-11-21 09:28] LABS: Abs Immature Grans 0.02 10^3/uL (0.0-0.06); Absolute Basophil Count 0.07 10^3/uL (0.0-0.2); Absolute Eosinophil Count 0.22 10^3/uL (0.0-0.7); Absolute Monocyte Count 0.85 10^3/uL (0.1-0.8); Absolute Neutrophil Count 6.15 10^3/uL (1.2-6.7); Basophils % 0.8; Eosinophils % 2.4; HCT 37.9 % (36.0-46.0); HGB 12.2 g/dL (11.2-15.7); Immature Grans % 0.2; Lymphocytes % 18.9; MCH 28.6 pg (27.0-33.0); MCHC 32.2 % (32.0-36.0); MCV 89 fL (80-95); MPV 9.8 fL (8.0-11.0); Monocytes % 9.4; Neutrophils % 68.3; Platelet Count 485 10^3/uL (130-400); RBC 4.26 10^6/uL (3.93-5.22); RDW 15.9 % (11.7-14.6); RDW-SD 52.3 fL; WBC 9.01 10^3/uL (4.4-10.8)
[2023-11-21 09:52] LABS: ALT 19 U/L (14-59); AST 10 U/L (15-37); Albumin 3.2 g/dL (3.4-5.0); Alkaline Phosphatase 106 U/L (46-116); Anion Gap 12.2 mmol/L (3-11); BUN 23 mg/dL (7-18); Bilirubin, Total 0.5 mg/dL (0.2-1.0); CO2 25.8 mmol/L (21.0-32.0); CREATININE 1.1 mg/dL (0.55-1.02); Calcium 9.1 mg/dL (8.5-10.1); Chloride 104 mmol/L (98-107); Glucose 125 mg/dL (74-106); Potassium 3.6 mmol/L (3.5-5.1); Sodium 142 mmol/L (136-145)
[2023-11-21] MEDS: Normal Saline Flush 10 ML SYR IVP (14:35)
[2023-11-21 18:34] LABS: CA 125 9 U/mL (<30)
== END 2023-11-30 23:59 | disposition home or self-care (01) ==
LOC: INF 04:57
PROVIDERS: PCP Nurse Practitioner; Visit Provider Internal Medicine
DX: C56.9 Malignant neoplasm of unspecified ovary (principal); Z45.2 Encounter for adjustment and management of vascular access device
CPT/HCPCS: 36591; 80053; 86304; 85025

== ENCOUNTER 2023-11-22 09:51 | Outpatient (REF) | payer MEDICARE, BC, SELFPAY | END 2023-11-22 09:52 | disposition home or self-care (01) | LOC: LBN 09:51 | PROVIDERS: PCP Nurse Practitioner; Visit Provider Physical Therapy Assistant | DX: Z51.89 Encounter for other specified aftercare (principal) | CPT/HCPCS: 87077; 87070; 87075; 87186; 87205 ==

== ENCOUNTER → 2023-11-22 09:51 | Outpatient (BNVA) | payer MEDICARE, BC, SELFPAY | PROVIDERS: PCP Nurse Practitioner; Referring Provider Nurse Practitioner; Visit Provider Physical Therapy Assistant | DX: Z51.89 Encounter for other specified aftercare (principal) | CPT/HCPCS: 99214 ==

== ENCOUNTER → 2023-11-30 12:49 | Outpatient (BNVA) | payer MEDICARE, BC, SELFPAY | PROVIDERS: PCP Nurse Practitioner; Referring Provider Nurse Practitioner; Visit Provider Surgery | DX: T81.31XD Disruption of external operation (surgical) wound, not elsewhere classified, subsequent encounter (principal) | CPT/HCPCS: 99213 ==

== ENCOUNTER → 2023-12-06 12:46 | Outpatient (BNVA) | payer MEDICARE, BC, SELFPAY | PROVIDERS: PCP Nurse Practitioner; Referring Provider Nurse Practitioner; Visit Provider Surgery | DX: Z51.89 Encounter for other specified aftercare (principal) | CPT/HCPCS: 99213 ==

== ENCOUNTER 2023-12-12 08:31 | Outpatient (RCR) | payer MEDICARE, BC, SELFPAY ==
[2023-12-12] MEDS: Normal Saline Flush 10 ML SYR IVP (08:30)
[2023-12-12 09:04] LABS: Abs Immature Grans 0.01 10^3/uL (0.0-0.06); Absolute Basophil Count 0.07 10^3/uL (0.0-0.2); Absolute Eosinophil Count 0.09 10^3/uL (0.0-0.7); Absolute Lymphocyte Count 1.33 10^3/uL (1.2-3.4); Absolute Monocyte Count 0.79 10^3/uL (0.1-0.8); Basophils % 1.6; Eosinophils % 2.1; HCT 33.2 % (36.0-46.0); HGB 10.7 g/dL (11.2-15.7); Immature Grans % 0.2; Lymphocytes % 30.3; MCH 29.2 pg (27.0-33.0); MCHC 32.2 % (32.0-36.0); MCV 91 fL (80-95); MPV 9.2 fL (8.0-11.0); Neutrophils % 47.8; Platelet Count 562 10^3/uL (130-400); RBC 3.67 10^6/uL (3.93-5.22); RDW 14.3 % (11.7-14.6); RDW-SD 46.9 fL; WBC 4.39 10^3/uL (4.4-10.8)
[2023-12-12 09:18] LABS: ALT 20 U/L (14-59); AST 10 U/L (15-37); Albumin 3.3 g/dL (3.4-5.0); Alkaline Phosphatase 94 U/L (46-116); Anion Gap 15.8 mmol/L (3-11); BUN 26 mg/dL (7-18); Bilirubin, Total 0.4 mg/dL (0.2-1.0); CO2 23.2 mmol/L (21.0-32.0); Calcium 8.7 mg/dL (8.5-10.1); Chloride 103 mmol/L (98-107); Estimated GFR 58.75 (mL/min/1.73m2); Glucose 111 mg/dL (74-106); Potassium 3.5 mmol/L (3.5-5.1); Sodium 142 mmol/L (136-145); Total Protein 6.8 g/dL (6.4-8.2)
[2023-12-12 17:56] LABS: CA 125 7 U/mL (<30)
== END 2023-12-31 23:59 | disposition home or self-care (01) ==
LOC: INF 08:31
PROVIDERS: PCP Nurse Practitioner; Visit Provider Internal Medicine
DX: D84.821 Immunodeficiency due to drugs; C80.1 Malignant (primary) neoplasm, unspecified; Z45.2 Encounter for adjustment and management of vascular access device
CPT/HCPCS: 36591; 80053; 86304; 85025

== ENCOUNTER → 2023-12-13 13:23 | Outpatient (BNVA) | payer MEDICARE, BC, SELFPAY | PROVIDERS: PCP Nurse Practitioner; Referring Provider Nurse Practitioner; Visit Provider Surgery | DX: T81.31XD Disruption of external operation (surgical) wound, not elsewhere classified, subsequent encounter (principal) | CPT/HCPCS: 99213 ==

== ENCOUNTER → 2023-12-27 09:20 | Outpatient (BNVA) | payer MEDICARE, BC, SELFPAY | PROVIDERS: PCP Nurse Practitioner; Referring Provider Nurse Practitioner; Visit Provider Surgery | DX: Z51.89 Encounter for other specified aftercare (principal) | CPT/HCPCS: 97597 ==

== ENCOUNTER 2024-01-02 04:35 | Outpatient (RCR) | payer MEDICARE, BC, SELFPAY ==
[2024-01-02] MEDS: Normal Saline Flush 10 ML SYR IVP (08:35)
[2024-01-02 09:05] LABS: Abs Immature Grans 0.01 10^3/uL (0.0-0.06); Absolute Basophil Count 0.06 10^3/uL (0.0-0.2); Absolute Eosinophil Count 0.05 10^3/uL (0.0-0.7); Absolute Lymphocyte Count 0.96 10^3/uL (1.2-3.4); Absolute Monocyte Count 1.12 10^3/uL (0.1-0.8); Absolute Neutrophil Count 2.13 10^3/uL (1.2-6.7); Basophils % 1.4; Eosinophils % 1.2; HCT 33.6 % (36.0-46.0); HGB 11.3 g/dL (11.2-15.7); Immature Grans % 0.2; Lymphocytes % 22.2; MCHC 33.6 % (32.0-36.0); MCV 92 fL (80-95); MPV 9.6 fL (8.0-11.0); Monocytes % 25.9; Neutrophils % 49.1; Platelet Count 385 10^3/uL (130-400); RBC 3.65 10^6/uL (3.93-5.22); RDW 15.3 % (11.7-14.6); RDW-SD 50.8 fL; WBC 4.33 10^3/uL (4.4-10.8)
[2024-01-02 09:13] LABS: ALT 19 U/L (14-59); AST 13 U/L (15-37); Albumin 3.2 g/dL (3.4-5.0); Alkaline Phosphatase 103 U/L (46-116); Anion Gap 11.4 mmol/L (3-11); BUN 21 mg/dL (7-18); Bilirubin, Total 0.4 mg/dL (0.2-1.0); CO2 25.6 mmol/L (21.0-32.0); Calcium 8.5 mg/dL (8.5-10.1); Chloride 103 mmol/L (98-107); Estimated GFR 58.75 (mL/min/1.73m2); Glucose 122 mg/dL (74-106); Potassium 3.5 mmol/L (3.5-5.1); Sodium 140 mmol/L (136-145); Total Protein 6.8 g/dL (6.4-8.2)
[2024-01-02 19:13] LABS: CA 125 8 U/mL (<30)
== END 2024-01-30 23:59 | disposition home or self-care (01) ==
LOC: INF 04:35
PROVIDERS: PCP Nurse Practitioner; Visit Provider Internal Medicine
DX: C56.9 Malignant neoplasm of unspecified ovary (principal); Z45.2 Encounter for adjustment and management of vascular access device
CPT/HCPCS: 36591; 80053; 86304; 85025

== ENCOUNTER → 2024-01-03 14:34 | Outpatient (BNVA) | payer MEDICARE, BC, SELFPAY | PROVIDERS: PCP Nurse Practitioner; Referring Provider Nurse Practitioner; Visit Provider Surgery | DX: T81.31XD Disruption of external operation (surgical) wound, not elsewhere classified, subsequent encounter (principal); X58.XXXD Exposure to other specified factors, subsequent encounter | CPT/HCPCS: 97597 ==

== ENCOUNTER → 2024-01-10 10:40 | Outpatient (BNVA) | payer MEDICARE, BC, SELFPAY | PROVIDERS: PCP Nurse Practitioner; Referring Provider Nurse Practitioner; Visit Provider Surgery | DX: Z51.89 Encounter for other specified aftercare (principal) | CPT/HCPCS: 99213 ==

== ENCOUNTER → 2024-01-17 13:47 | Outpatient (BNVA) | payer MEDICARE, BC, SELFPAY | PROVIDERS: PCP Nurse Practitioner; Referring Provider Nurse Practitioner; Visit Provider Surgery | DX: Z51.89 Encounter for other specified aftercare (principal) | CPT/HCPCS: 99213 ==

== ENCOUNTER 2024-01-31 16:01 | Outpatient (CLI) | payer MEDICARE, BC, SELFPAY ==
[2024-01-31 17:11] LABS: TSH (W/Ref FT4) 1.38 uIU/mL (0.36-3.74)
== END 2024-01-31 16:02 | disposition home or self-care (01) ==
LOC: LBO 16:02
PROVIDERS: PCP Nurse Practitioner; Visit Provider Nurse Practitioner
DX: I10 Essential (primary) hypertension (principal); E03.9 Hypothyroidism, unspecified
CPT/HCPCS: 36415; 84443

== ENCOUNTER → 2024-02-14 10:20 | Outpatient (BNVA) | payer MEDICARE, BC, SELFPAY | PROVIDERS: PCP Nurse Practitioner; Referring Provider Nurse Practitioner; Visit Provider Physical Therapy Assistant | DX: Z51.89 Encounter for other specified aftercare (principal); T81.31XD Disruption of external operation (surgical) wound, not elsewhere classified, subsequent encounter | CPT/HCPCS: 99213 ==

== ENCOUNTER → 2024-03-01 09:51 | Outpatient (BNVA) | payer MEDICARE, BC, SELFPAY | PROVIDERS: PCP Nurse Practitioner; Referring Provider Nurse Practitioner; Visit Provider Physical Therapy Assistant | DX: C56.9 Malignant neoplasm of unspecified ovary (principal); Z51.89 Encounter for other specified aftercare | CPT/HCPCS: 99215 ==

== ENCOUNTER → 2024-03-07 02:50 | Outpatient (CLI) | payer MEDICARE, BC, SELFPAY ==
--- NOTE | 2024-03-07 08:00 | DI.US_ITS ---
Exam(s) US THYROID EXAM: US THYROID CLINICAL HISTORY: Assess for change, MULTINODULAR GOITER, OVARIAN CANCER, E04.2, C56.9. TECHNIQUE: Ultrasound thyroid performed using standard protocol. COMPARISON: Prior thyroid ultrasound examination performed 07/31/2023 FINDINGS: There are bilateral nodules again noted. One nodule in the right lobe and 2 nodules in the left lobe . RIGHT THYROID LOBE: Measures 2.2 cm AP x 2.0 cm wide x 5 cm craniocaudal There is again noted a mixed solid-cystic nodule in the right lobe which measures 3.3 x 2.0 x 1.8 cm, similar to previous. With respect to TR grading of this nodule: Composition: Mixed bqdkq-[id number]-1 point Echogenicity: Solid components are isoechoic to the gland-1 point Shape: Wider than taller-0 points Margin: Smooth- 0 points Echogenic Foci: None-0 points Total Points for this nodule: 2 ACR Ti-Rads Category: TR2 This nodule has not significantly increased in size from the prior study of 07/31/2023 ISTHMUS: Normal thickness. There are no nodules in the isthmus. LEFT THYROID LOBE: Measures 2.5 cm AP x 2.3 wide x 5.6 cm craniocaudal There are 2 nodules in left lobe. The more superior located nodule measures 1.4 x 1 x 1 cm Grading characteristics are as follows: Composition: Solid-2 points Echogenicity: Hypoechoic-2 points Shape: Taller than wider in the transverse plane-3 points Margin: Smooth-0 points Echogenic Foci: None-0 points Total points for this nodule: 7 ACR Ti-Rads Category: 5 This TR 5 level nodule should undergo ultrasound guided FNA as it measures greater than 1 cm. It appears to have slightly increased in size from the prior study. The 2nd more inferiorly located nodule in the left lobe measures 4.2 cm x 2.2 cm x 2.7 cm It is graded as follows: Composition: Solid-2 points Echogenicity: Isoechoic-1 point Shape: Slightly taller than wider in the transverse plane-3 points Margin: Ika-gihwpwk-1 points Echogenic Foci: None-0 points Total Points for this nodule: 6 ACR Ti-Rads Category: 4 This TR 4 level nodule should undergo ultrasound-guided FNA as it measures greater than 1.5 cm. It appears to have slightly increased in size when compared to the prior study. LYMPH NODES: There is no significant adenopathy on either side of the neck.. IMPRESSION: 1. There are a total of 3 nodules in the thyroid gland again noted, one mixed solid cystic nodule in the right lobe and 2 solid nodules in the left lobe. 2. Both solid nodules in left lobe should undergo ultrasound-guided FNA due to there TiRads grading a nd size. Both appear to have slightly increased in size from the prior study of 07/31/2023. 3. There is no significant lymphadenopathy. DATA REPOSITORY:
== END ==
PROVIDERS: PCP Nurse Practitioner; Visit Provider Otolaryngology
DX: E04.2 Nontoxic multinodular goiter (principal); C56.2 Malignant neoplasm of left ovary
CPT/HCPCS: 76536

== ENCOUNTER → 2024-03-12 09:53 | Outpatient (BNVA) | payer MEDICARE, BC, SELFPAY | PROVIDERS: PCP Nurse Practitioner; Referring Provider Nurse Practitioner; Visit Provider Physical Therapy Assistant | DX: Z51.89 Encounter for other specified aftercare (principal); C56.9 Malignant neoplasm of unspecified ovary | CPT/HCPCS: 99215 ==

== ENCOUNTER → 2024-03-26 12:56 | Outpatient (BNVA) | payer MEDICARE, BC, SELFPAY | PROVIDERS: PCP Nurse Practitioner; Referring Provider Nurse Practitioner; Visit Provider Physical Therapy Assistant | DX: Z51.89 Encounter for other specified aftercare (principal); T81.31XD Disruption of external operation (surgical) wound, not elsewhere classified, subsequent encounter | CPT/HCPCS: 99213 ==

== ENCOUNTER → 2024-04-02 01:56 | Outpatient (CLI) | payer MEDICARE, BC, SELFPAY ==
--- NOTE | 2024-04-02 07:30 | DI.US_ITS ---
Exam(s) US NEEDLE LOCAL OTHER WO RAD EXAM: Multinodular thyroid, history of ovarian cancer,ULTRASOUND GUIDED BX,E04.2 COMPARISON: US US THYROID from 03/07/2024 TECHNIQUE: Ultrasound performed using standard protocol. FINDINGS: Sonography was provided for Dr. Cedeno during the performance of a thyroid biopsy. Please refer to the procedure report for complete details. DATA REPOSITORY:
--- NOTE | 2024-04-02 11:35 | PAPNONF_PTH ---
PATIENT: Sheila Garrett LOC: [facility] U#:[id number] AGE/SX: 75/F ROOM: RE04/02/[address]: Bernard Cedeno MD : [id number] BED: DIS: SPEC #: [id number] RECD: 04/02/24 13:13 STATUS: MARCIA COOK #: [id number] MEGHAN: 04/02/24 11:[address]: Bernard Cedeno DEPT: [facility] Cytology RECD BY: Lilliana Robles ENTERED: 04/02/24 13:14 SP TYPE: BRANDON SEYMOUR DR: Kaelyn Portillo APRN Tissues: 1 - BODY FLUID CYTO-FINE NEEDLE ASPIRATE-[facility] 2 - BODY FLUID CYTO-FINE NEEDLE ASPIRATE[facility] Procedures: BODY FLUID CYTO-FINE NEEDLE ASPIRATE[facility] Comments: [id number] (PATH FNA CONSULT) (REFRIGERATED)
--- NOTE | 2024-04-02 11:47 | W.PROCNOTE ---
Date of service: 04/02/24 Time of Service: 11:47 Procedure Note Date of procedure: 04/02/24 Procedure: Ultrasound-guided FNA, 2 thyroid nodules left, pathology present Procedure Diagnosis: Left thyroid nodules meeting criteria for biopsy, history of ovarian cancer Procedure Indications: The patient has 2 left-sided thyroid nodules meeting criteria for biopsy. Options were explained to the patient regarding further management. She wanted biopsy. Risks and benefits as well as the procedure were discussed at length. Written consent was obtained. The below was then performed. Procedure Description: The patient was positioned in supine position with her neck slightly extended and she was prepped and draped in appropriate fashion. 1% lidocaine with 1/100,000 epinephrine was injected in the skin and subcutaneous tissues overlying the thyroid nodules medially and then 5 minutes was allowed to elapse. Using the ultrasound to localize both first the superior nodule and then the lower nodule, 25-gauge needles were used to perform FNA and pathology verified adequate cellularity. 2 additional passes were made into each nodule for potential Afirma testing. There is no significant bleeding. The patient tolerated the procedure well. The wound was inspected for hemostasis and then a sterile dressing was applied. She was able to state and then stand and ambulate. Her vital signs remained stable. She will remove the bandage tonight and not replace it. She will use ibuprofen or Tylenol for any discomfort. She will call with any signs of infection or any concerns. She will call if she does not hear from me by Monday with regard to pathology results. She had no further questions. She is comfortable with this plan.
== END ==
PROVIDERS: PCP Nurse Practitioner; Visit Provider Otolaryngology
DX: E04.2 Nontoxic multinodular goiter (principal)
CPT/HCPCS: 10005; 10006; 76942; 88104

== ENCOUNTER → 2024-04-09 08:52 | Outpatient (BNVA) | payer MEDICARE, BC, SELFPAY | PROVIDERS: PCP Nurse Practitioner; Referring Provider Nurse Practitioner; Visit Provider Physical Therapy Assistant | DX: Z51.89 Encounter for other specified aftercare (principal); C56.9 Malignant neoplasm of unspecified ovary | CPT/HCPCS: 99213 ==

== ENCOUNTER 2024-04-17 02:40 | Outpatient (RCR) | payer MEDICARE, BC, SELFPAY ==
[2024-04-17] MEDS: Normal Saline Flush 10 ML SYR IVP (12:05)
== END 2024-05-01 23:59 | disposition home or self-care (01) ==
LOC: INF 02:40
PROVIDERS: PCP Nurse Practitioner; Visit Provider Obstetrics & Gynecology Gynecologic Oncology
DX: Z45.2 Encounter for adjustment and management of vascular access device (principal)
CPT/HCPCS: 96523

== ENCOUNTER 2024-05-29 02:43 | Outpatient (RCR) | payer MEDICARE, BC, SELFPAY ==
[2024-05-29] MEDS: Normal Saline Flush 10 ML SYR IVP (14:02)
== END 2024-06-01 23:59 | disposition home or self-care (01) ==
LOC: INF 02:43
PROVIDERS: PCP Nurse Practitioner; Visit Provider Obstetrics & Gynecology Gynecologic Oncology
DX: Z45.2 Encounter for adjustment and management of vascular access device (principal)
CPT/HCPCS: 96523

== ENCOUNTER 2024-06-26 02:14 | Outpatient (RCR) | payer MEDICARE, BC, SELFPAY ==
[2024-06-26] MEDS: Normal Saline Flush 10 ML SYR IVP (14:01)
== END 2024-07-01 23:59 | disposition home or self-care (01) ==
LOC: INF 02:14
PROVIDERS: PCP Nurse Practitioner; Visit Provider Obstetrics & Gynecology Gynecologic Oncology
DX: Z45.2 Encounter for adjustment and management of vascular access device (principal)
CPT/HCPCS: 96523

== ENCOUNTER 2024-08-07 03:00 | Outpatient (RCR) | payer MEDICARE, BC, SELFPAY | END 2024-08-31 23:59 | disposition home or self-care (01) | LOC: INF 03:00 | PROVIDERS: PCP Nurse Practitioner; Visit Provider Obstetrics & Gynecology Gynecologic Oncology | DX: Z45.2 Encounter for adjustment and management of vascular access device (principal) | CPT/HCPCS: 96523 ==

== ENCOUNTER 2024-09-18 04:02 | Outpatient (RCR) | payer MEDICARE, BC, SELFPAY ==
[2024-09-18] MEDS: Normal Saline Flush 10 ML SYR IVP (13:54)
== END 2024-10-01 23:59 | disposition home or self-care (01) ==
LOC: INF 04:02
PROVIDERS: PCP Nurse Practitioner; Visit Provider Obstetrics & Gynecology Gynecologic Oncology
DX: Z45.2 Encounter for adjustment and management of vascular access device (principal)
CPT/HCPCS: 96523

== ENCOUNTER 2024-10-30 13:25 | Outpatient (RCR) | payer MEDICARE, BC, SELFPAY ==
[2024-10-30] MEDS: Normal Saline Flush 10 ML SYR IVP (13:29)
== END 2024-11-01 23:59 | disposition home or self-care (01) ==
LOC: INF 13:25
PROVIDERS: PCP Nurse Practitioner; Visit Provider Obstetrics & Gynecology Gynecologic Oncology
DX: Z45.2 Encounter for adjustment and management of vascular access device (principal)
CPT/HCPCS: 96523

== ENCOUNTER 2024-11-20 12:40 | Outpatient (CLI) | payer MEDICARE, BC, SELFPAY ==
[2024-11-20 12:27] LABS: Abs Immature Grans 0.02 10^3/uL (0.0-0.06); Absolute Basophil Count 0.06 10^3/uL (0.0-0.2); Absolute Eosinophil Count 0.06 10^3/uL (0.0-0.7); Absolute Lymphocyte Count 1.67 10^3/uL (1.2-3.4); Absolute Monocyte Count 0.77 10^3/uL (0.1-0.8); Absolute Neutrophil Count 4.34 10^3/uL (1.2-6.7); Basophils % 0.9 %; Eosinophils % 0.9 %; HGB 14.2 g/dL (11.2-15.7); Immature Grans % 0.3 %; Lymphocytes % 24.1 %; MCH 30.7 pg (27.0-33.0); MCV 93 fL (80-95); MPV 10.2 fL (8.0-11.0); Monocytes % 11.1 %; Neutrophils % 62.7 %; Platelet Count 325 10^3/uL (130-400); RBC 4.63 10^6/uL (3.93-5.22); RDW 12.4 % (11.7-14.6); RDW-SD 42.3 fL; WBC 6.92 10^3/uL (4.4-10.8)
[2024-11-20 13:29] LABS: ALT 25 U/L (14-59); AST 15 U/L (15-37); Albumin 3.9 g/dL (3.4-5.0); Alkaline Phosphatase 97 U/L (46-116); Anion Gap 8.9 mmol/L (3-11); BUN 22 mg/dL (7-18); Bilirubin, Total 0.55 mg/dL (0.2-1.0); CO2 26.1 mmol/L (21.0-32.0); CREATININE 1.1 mg/dL (0.55-1.02); Calcium 9.6 mg/dL (8.5-10.1); Chloride 108 mmol/L (98-107); Estimated GFR 52.08 (mL/min/1.73m2); Glucose 106 mg/dL (74-106); Potassium 3.9 mmol/L (3.5-5.1); Sodium 143 mmol/L (136-145); TSH (W/Ref FT4) 1.45 uIU/mL (0.36-3.74); Total Protein 7.4 g/dL (6.4-8.2)
[2024-11-20 14:28] LABS: Calculated LDL 71 mg/dL (<100); Cholesterol 170 mg/dL (<200); HDL Cholesterol 83 mg/dL (40-60); Triglyceride 84 mg/dL (<150)
== END 2024-11-20 12:41 | disposition home or self-care (01) ==
LOC: LBO 12:41
PROVIDERS: PCP Nurse Practitioner; Visit Provider Nurse Practitioner
DX: I10 Essential (primary) hypertension (principal); E05.90 Thyrotoxicosis, unspecified without thyrotoxic crisis or storm; E78.5 Hyperlipidemia, unspecified; Z85.43 Personal history of malignant neoplasm of ovary; Z90.710 Acquired absence of both cervix and uterus; Z90.722 Acquired absence of ovaries, bilateral
CPT/HCPCS: 36415; 80053; 80061; 84443; 85025

== ENCOUNTER 2024-12-11 04:19 | Outpatient (RCR) | payer MEDICARE, BC, SELFPAY ==
[2024-12-11] MEDS: Normal Saline Flush 10 ML SYR IVP (13:39)
== END 2024-12-30 23:59 | disposition home or self-care (01) ==
LOC: INF 04:19
PROVIDERS: PCP Nurse Practitioner; Visit Provider Obstetrics & Gynecology Gynecologic Oncology
DX: Z46.89 Encounter for fitting and adjustment of other specified devices (principal)
CPT/HCPCS: 96523

== ENCOUNTER → 2024-12-19 12:54 | Outpatient (BNVA) | payer MEDICARE, BC, SELFPAY | PROVIDERS: PCP Nurse Practitioner; Referring Provider Nurse Practitioner; Visit Provider Physical Therapy Assistant | DX: Z12.11 Encounter for screening for malignant neoplasm of colon (principal) ==

== ENCOUNTER 2024-12-25 00:49 | Outpatient (CLI) | payer MEDICARE, BC, SELFPAY ==
--- NOTE | 2024-12-25 06:30 | DI.MAMMO_ITS ---
Exam(s) MAMMO SCREENING EXAM: MAMMO SCREENING CLINICAL HISTORY: screening,z12.39 TECHNIQUE: Mammograms were interpreted according to the usual protocol including computer analysis w ith CAD system, tomosynthesis and C-view imaging. COMPARISON: SCREENING ANGLE MAMMO W/CAD DIGI from 08/28/2012 FINDINGS: The breasts are composed of scattered fibroglandular densities, Breast Density category B. There is a port over the right pectoral muscle. Positioning of the left MLO view is mildly limited by patient shoulder immobility. No suspicious masses or suspicious microcalcifications are seen. No skin thickening or abnormal axillary lymph nodes are seen. There has been no significant change from prior exams. IMPRESSION: BI-RADS Category 1, Negative mammogram Yearly screening mammography is recommended. Breast Density - Category B, scattered fibroglandular densities. A negative radiographic report should not delay biopsy if a dominant or clinically suspicious mass is present. Up to ten percent of cancers are not identified on mammography. A negative report may reinforce clinical impression. Adenosis and dense breasts may obscure an underlying neoplasm. False positive reports average 6 to 10%. Patient will receive a letter notifying them of these results.
== END 2024-12-25 01:09 ==
LOC: DI 00:49
PROVIDERS: PCP Nurse Practitioner; Visit Provider Nurse Practitioner
DX: Z12.31 Encounter for screening mammogram for malignant neoplasm of breast (principal); R92.323 Mammographic fibroglandular density, bilateral breasts
CPT/HCPCS: 77063; 77067

== ENCOUNTER 2025-01-06 12:03 | Day surgery (SDC) | payer MEDICARE, BC, SELFPAY ==
--- NOTE | 2025-01-05 08:38 | PDOC.DSDIS_ITS ---
Date of service: 01/06/25 Discharge Plan Disposition Patient Disposition: Home Condition: Good Discharge Details Reason For Visit: Screening colonoscopy Attending Provider: Eduar Campbell Primary Care Provider: Kaelyn Portillo Home Meds and New Rx's Prescriptions: Continued atorvastatin 10 mg tablet 10 mg PO DAILY Qty: 90 3RF losartan 50 mg tablet 50 mg PO DAILY Qty: 90 3RF methimazole 5 mg tablet 5 mg PO DAILY Qty: 90 3RF naproxen sodium [Aleve] 220 mg capsule 220 mg PO BID PRNQty: 2 docusate sodium 100 mg capsule 100 mg PO BID PRN (Reason: constipation) acetaminophen 500 mg tablet 500 mg PO BID PRN (Reason: Bone pain) Discontinued bisacodyl [Dulcolax (bisacodyl)] 5 mg tablet,delayed release (DR/EC) 5 mg PO ONCE Qty: 4 0RF Rx Instructions: Take per colonoscopy instructions provided by ordering providers office polyethylene glycol 3350 17 gram/dose powder 17 g PO ONCE Qty: 238 0RF Rx Instructions: Take per colonoscopy instructions provided by ordering providers office Discharge Instructions Additional Instructions: Sheila, it was great seeing you today, and I am glad that you are doing well. Hopefully will feel well after the colonoscopy. With regards to the actual p rocedure, there are no signs of tumors, polyps, or any worrisome cancer pathology. You do have a little bit of stricturing, or narrowing at the anastomosis (this is the connection from where part of your rectum was removed). This could certainly account for some constipation type symptoms, or difficulty emptying your rectum. There are ways to dilate this, but I suspect leaving it alone, and focusing on diet, and stool softeners if needed is probably a safer strategy. Incidentally, you also have a little bit of diverticulosis. These are little weak spots in the muscular layer of the colon wall. These can get infected and inflamed during episodes that we refer to as diverticulitis. I would not expect that in someone with your history, and I hope they never bother you, but it is useful information to know. Again, maintaining a diet that is rich in fiber, targeting soft bulky stools is generally the best approach appearing stay well-hydrated with water throughout the course of the day is also quite important. We typically recommend ongoing screening colonoscopy until age 85, but I would encourage you to maintain open conversations with your primary care, and oncology teams regarding the utility of screening colonoscopies in the years to come. If you need anything, or have any questions at all, please do not hesitate to ask at any point. 1. If tolerated, consume a soft, low fiber diet for 1-2 days. 2[address] Do not drive, drink alcohol, operate machinery, make critical decisions, or do activities that require coordination or balance for 24 hours. 3. Because air was put into your colon during the procedure, expelling air from your rectum (passing gas or farting) is normal. 4. You may not have a bowel movement for 1-3 days because of the colonoscopy prep. This is normal. 5. Go directly to the emergency room if you notice any of the following: Develop chills (warm to touch), or if you have a thermometer and your temperature is above 101 Difficulty breathing or difficultly swallowing Persistent vomiting Severe abdominal pain, other than gas cramps Severe chest pain Black, tarry stools Any bleeding ? exceeding one tablespoon 6. Call your physician if the site where your intravenous was started becomes red, swollen, painful, and warm to touch. 7. Your physician has reviewed your pre-procedure medications. Please continue to take those medications as previously ordered. You will be given specific information/education regarding any changes to your medications before leaving. Activity:: Activity as Tolerated Diet:: As Tolerated Discharge Orders Discharge Orders: Discharge Order (Routine); Ordered 01/05/25 Ordered By: Eduar Campbell DS: Diagnosis Discharge Diagnosis (1) Encounter for screening colonoscopy: Status: Acute
--- NOTE | 2025-01-05 08:39 | W.COLOREPORT ---
Date of service: 01/06/25 Time of Service: 15:01 Colonoscopy Report Date of procedure: 01/06/25 Pre-op diagnosis general: Screening colonoscopy Post-op diagnosis procedure note: other (Diverticulosis) Procedure: Colonoscopy Surgeon: Eduar Campbell Anesthesia Type: General:No Airway Estimated blood loss (mL): 0 Pathology: none sent Complications: None Disposition: same day Indications: Sheila is a 74-year-old woman who needs her next screening colonoscopy Prep: Miralax/Dulcolax Procedure Start Time: 14:24 Procedure End Time: 14:39 Retraction Time: 10 Findings: Slightly narrowed colorectal anastomosis approximately 12 cm from the anus, occasional left-sided diverticula, Procedure Description: After the induction of anesthesia, and with the patient in left lateral decubitus position, I began by performing an external anorectal exam.? Perineum and skin were normal, as was the anal verge.? There was no evidence of external hemorrhoids.? Next, I performed a digital rectal exam.? I did not appreciate any abnormal findings.? Next, I advanced a colonoscope into the rectal vault.? I performed retroflexion.? This appeared normal.? Using insufflation, I then advanced the colonoscope beyond the rectal folds. Around 12 cm from the anal verge is some narrowing of the lumen. Clinical features seem consistent with an anastomosis. I am able to easily traverse this, and advance into the left colon. The area was carefully examined several times. Narrowband imaging was used to assist with the analysis. Aside from some mild stricturing, the tissue otherwise appeared as expected. There are several diverticula in the left colon. The scope was noted to be in the cecum by identification of the ileocecal valve. I then began withdrawing the colonoscope using repeated irrigation as necessary for full evaluation of the colonic mucosa. ?Once the scope was withdrawn to the level of the rectum, great care was taken to examine portions of the rectal folds.? Finally, the scope was withdrawn and the patient was brought to the same-day surgery recovery unit as the anesthetic wore off. ?The findings and instructions were shared with the patient prior to discharge. [place] Bowel Prep [place] Bowel Prep Right Colon: 1 Left Colon: 2 Transverse Colon: 2 Total Score: 5
[2025-01-06 12:31] VITALS: BP 135/80; PULSE 99; RESP 18; TEMP 36.4; O2SAT 95
[2025-01-06] MEDS: Lactated Ringers 1,000 ML 80 ML IV (12:44)
--- NOTE | 2025-01-06 12:49 | W.ANESPRE ---
General Info Date of Service Date Performed: 01/06/25 Height: 5 ft 5 in Weight: 76.5 kg Body Mass Index (BMI): 28.0 Surgical Procedure: Operation Date: 01/06/25 13:20 Proposed Procedure Side Surgeon federica Campbell MD Meds Allergies and Home Medications Allergies Allergy/AdvReac Type Severity Reaction Status Date / Time lisinopril AdvReac Intermediate Cough Verified 01/06/25 12:27 codeine AdvReac Unknown intolerant Verified 01/06/25 12:27 sucralfate (From Carafate) AdvReac Unknown Intolerant Verified 01/06/25 12:27 Home Medication ?Medication ?Instructions ?Recorded naproxen sodium 220 mg capsule 220 mg PO BID PRN ##2 01/19/23 (Aleve) docusate sodium 100 mg capsule 100 mg PO BID PRN constipation 06/30/23 acetaminophen 500 mg tablet 500 mg PO BID PRN Bone pain 12/13/23 atorvastatin 10 mg tablet 10 mg PO DAILY #90 tabs 11/20/24 losartan 50 mg tablet 50 mg PO DAILY #90 tab-caps 11/20/24 methimazole 5 mg tablet 5 mg PO DAILY #90 tabs 11/20/24 Current Visit Medications: Current Medications Generic Name Dose Route Start Last Admin Trade Name Freq PRN Reason Stop Dose Admin Ringer's Solution 1,000 mls @ 80 mls/hr 01/06/25 06:00 01/06/25 12:44 IV 01/06/25 23:59 80 mls/hr INFUSION TRANG Administration IV Miscellaneous Supplies 1 each 01/06/25 06:00 Iv Access IV 01/06/25 23:59 DIRECTED TRANG Ondansetron HCl 4 mg 01/05/25 08:40 Ondansetron 4 Mg/2 Ml Vial IVP 02/04/25 08:39 Q4H PRN PRN Nausea / Vomiting Sodium Chloride 0 ml 01/06/25 06:00 Normal Saline Flush 10 Ml Syr IV 01/06/25 23:59 PRN PRN Sodium Chloride 0 ml 01/06/25 06:00 Normal Saline 10 Ml Vial IJ 01/06/25 23:59 DIRECTED PRN Sterile Water 0 ml 01/06/25 06:00 Water,Injection,Sterile 10 Ml Vial IJ 01/06/25 23:59 DIRECTED PRN PFSH Active Problems Active Problems: Problem Status Onset Code Encounter for screening colonoscopy Acute Z12.11 Difficulty coping with disease Acute ~11/2024 R45.89 Multinodular thyroid Acute E04.2 Immunocompromised state due to drug therapy Acute D84.821, Z79.899 Ovarian cancer Chronic C56.9 Acquired asplenia Acute Z90.81 Encounter for wound care Acute Z51.89 Wound disruption, post-op, skin Acute T81.31XA S/P TURNER-BSO Acute Z90.710, Z90.722, Z90.79 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 states she doesn't want any pain medication that is heavy that I will get addicted to, if I need something thats fine but nothing major Surgical History Surgical History Hx of colectomy Per pt. 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) History of hysterectomy with bilateral oophorectomy (06/08/23) [facility] laparoscopic Tobacco Smoking/Tobacco Use Status: Never Alcohol Alcohol Intake: never Substance Use Substance use type: does not use Vital Signs and Lab Results Vital Signs Most Recent Vital Signs in EMR: Most Recent Vital Signs Temp Pulse Resp BP Pulse Ox 36.4 C L 99 H 18 135/80 95 01/06/25 12:31 01/06/25 12:31 01/06/25 12:31 01/06/25 12:31 01/06/25 12:31 Lab Results Blood Type / Crossmatch: No Data to Display Complete Blood Count: No Data to Display Complete Metabolic Panel: No Data to Display Liver Function Panel: No Data to Display Coagulation Panel: No Data to Display Cardiac Panel: No Data to Display Arterial Blood Gas: No Data to Display Venous Blood Gas: No Data to Display Pancreas Panel: No Data to Display Thyroid Panel: No Data to Display Infectious Disease: No Data to Display Blood Cultures: No Data to Display Toxicology Panel: No Data to Display Imaging and Studies Imaging and Studies Study information below may be from another EMR and interpreted by another provider. Please see original notes in EMR for more complete details. Other Study Summary:: past CTs of abdomen/pelvis and U/S thyroid reviewed and results in chart Anesthesia Assessment and Plan Anesthesia History Personal History: No History of Anesthesia Complications Family History: No Family History of Anesthesia Complications Exercise Tolerance Exercise Tolerance: Metabolic Equivalents<4 Pertinent Negatives Pertinent Negatives: No Symptoms of GERD, No Major Cardiovascular Symptoms or Complaints and No Major Pulmonary Symptoms or Complaints Cardiac & Pulmonary Exam Cardiac Exam: Normal S1/S2 Heart Sounds Pulmonary Exam: Clear Bilateral Breath Sounds Implantable Cardiac Device Does patient have a Pacemaker or an ICD?: No Airway Exam Known Difficult Airway: No Mallampati Class: 3 Mouth Opening: Normal (> 3cm) Thyromental Distance: Less than 3 cm Neck Range of Motion: Full ROM Neck Circumference: Normal Teeth Condition: Normal Dentition ASA Classification ASA Score: ASA 3 Emergency Case?: No NPO Status NPO Status: NPO Clears >2 hours, Solids >8 hours Anesthesia Plan Resuscitation Status: Full Code Anesthesia Technique: General Anesthesia Airway Planned: Natural Airway Monitors Used: Standard Monitors
[2025-01-06 12:50] VITALS: BMI 28.0
[2025-01-06 14:44] VITALS: BP 119/75; PULSE 89; RESP 18; TEMP 36.4; O2SAT 96
--- NOTE | 2025-01-06 14:58 | W.ANESPOSTOP ---
Postoperative Evaluation Date, Time and Location Date Performed: 01/06/25 Time Performed: 14:46 Patient Location: Day Surgery Unit Vital Signs Most Recent Imported Vital Signs: Most Recent Vital Signs Temp Pulse Resp BP Pulse Ox 36.4 C L 89 18 119/75 96 01/06/25 14:44 01/06/25 14:44 01/06/25 14:44 01/06/25 14:44 01/06/25 14:44 Pain Score Most Recent Pain Score: Most Recent Pain Score Pain Level 0 01/06/25 14:44 Assessment Mental Status: Awake (Alert & Oriented to Patient Baseline) Airway and Respiratory Function: Patent airway with normal (patient baseline) respiratory exam Cardiovascular Function: Hemodynamically Stable Hydration Status: Adequately Hydrated Nausea & Vomiting: No Nausea or Vomiting Pain: Pt. Denies Any Pain Peripheral Nerve Block: Patient did not receive a nerve block
[2025-01-06 15:13] VITALS: BP 139/90; PULSE 87; RESP 18; TEMP 36.3; O2SAT 95
== END 2025-01-06 15:45 | disposition home or self-care (01) ==
LOC: SUR 12:03
PROVIDERS: PCP Nurse Practitioner; Visit Provider Surgery
PROC: 0DJD8ZZ Inspection of Lower Intestinal Tract, Via Natural or Artificial Opening Endoscopic (ICD-10-PCS; CPT 45378; principal; 2025-01-06 13:15)
DX: Z12.11 Encounter for screening for malignant neoplasm of colon (principal); K57.30 Diverticulosis of large intestine without perforation or abscess without bleeding
CPT/HCPCS: G0121; J2704

== ENCOUNTER 2025-01-10 15:19 | Outpatient (REF) | payer MEDICARE, BC, SELFPAY ==
[2025-01-10 15:08] LABS: Bilirubin Negative (Negative); Blood Trace-intact (Negative); Clarity Sl Cloudy (Clear); Glucose Negative (Negative); Ketones Negative (Negative); Leukocyte Esterase Large (Negative); Nitrite Negative (Negative); Specific Gravity <= 1.005 (1.005-1.025); Urobilinogen 0.2 mg/dL (Up to 0.2); pH 5.5 (5-8)
[2025-01-10 15:16] LABS: Epithelial Cells Rare HPF (Negative); WBC >50 HPF (0-5)
[2025-01-10 15:17] LABS: Bacteria Moderate HPF (Negative); C & S Indicated? Yes; Casts Negative LPF (Negative); Crystals Negative HPF (Negative); Mucus Negative (Negative); Other Cells Few Transitional (Negative)
== END 2025-01-10 15:20 | disposition home or self-care (01) ==
LOC: LBN 15:19
PROVIDERS: PCP Nurse Practitioner; Visit Provider Nurse Practitioner Family
DX: R30.0 Dysuria (principal); R82.89 Other abnormal findings on cytological and histological examination of urine
CPT/HCPCS: 81003; 81015; 87086

== ENCOUNTER 2025-01-15 02:04 | Outpatient (RCR) | payer MEDICARE, BC, SELFPAY ==
[2025-01-15] MEDS: Normal Saline Flush 10 ML SYR IVP (13:26)
== END 2025-01-29 23:59 | disposition home or self-care (01) ==
LOC: INF 02:04
PROVIDERS: PCP Nurse Practitioner; Visit Provider Obstetrics & Gynecology Gynecologic Oncology
DX: Z45.2 Encounter for adjustment and management of vascular access device (principal)
CPT/HCPCS: 96523

== ENCOUNTER 2025-01-17 17:37 | Emergency (ER) | payer MEDICARE, BC, SELFPAY ==
[2025-01-17] VITALS (18 sets, daily range): BP systolic 134–148; BP diastolic 68–80; PULSE 80–136; RESP 13–30; TEMP 37; O2SAT 93–97
--- NOTE | 2025-01-17 17:45 | RT.EKG_ITS ---
APPROVED REPORT Exam: Resting ECG Reason for Exam: SOB Patient Location: E HR:119 bpm ECG Measurements Heart Rate 119 AXIS NM 155 P -3 QRSd 70 QRS 37 QT 313 T 46 QTc 441 Conclusion Sinus tachycardia...rate> 99
--- NOTE | 2025-01-17 18:15 | DI.RAD_ITS ---
Exam(s) XR PORTABLE CHEST AP EXAM: XR PORTABLE CHEST AP CLINICAL HISTORY: cough, dyspnea. TECHNIQUE: 2D digital imaging was performed. COMPARISON: CT CT CHEST PE CTA from 01/17/2025 FINDINGS: Single AP portable view. Distal tip of the right sided Port-A-Cath is in good position in the lower SVC. Heart size is upper normal. The mediastinum is not widened. There is mild bronchiectasis in the left lower lobe posterior basal segment. There is platelike atel ectasis in the posterior basal segment of the right lower lobe. No pleural effusions. No ominous pu lmonary nodules. IMPRESSION: Platelike atelectasis right lung base and bronchiectasis left lung base. There are no obvious pleural effusions. DATA REPOSITORY: RADIATION DOSE DELIVERED:
--- NOTE | 2025-01-17 18:34 | W.ED.GENAD ---
Discharge Plan Disposition Patient Disposition: Home Condition: Stable Discharge Details Clinical Impression: Cough, Chest pain, pleuritic Primary Care Provider: Kaelyn Portillo ED Provider: Husam Jaime Home Meds and New Rx's Prescriptions: New prednisone 20 mg tablet 60 mg PO DAILY 4 Days Qty: 12 0RF amoxicillin-pot clavulanate 875-125 mg tablet 1 tab PO BID Qty: 14 0RF Continued atorvastatin 10 mg tablet 10 mg PO DAILY Qty: 90 3RF losartan 50 mg tablet 50 mg PO DAILY Qty: 90 3RF methimazole 5 mg tablet 5 mg PO DAILY Qty: 90 3RF naproxen sodium [Aleve] 220 mg capsule 220 mg PO BID PRNQty: 2 docusate sodium 100 mg capsule 100 mg PO BID PRN (Reason: constipation) acetaminophen 500 mg tablet 500 mg PO BID PRN (Reason: Bone pain) Discharge Instructions Additional Instructions: Your CAT scan did not show any concerning findings other than a small amount of fluid likely from pleurisy. I am covering with antibiotics for your persistent cough. I am also prescribing a short course of steroid. He can use the albuterol inhaler as needed every 4 hours 2 puffs. If you are not improving this week follow-up with your primary care provider. If you feel significantly more ill or have new symptoms such as high fevers return to the emergency department for reevaluation HPI General Mode of arrival: ambulatory. Date/Time Provider Initiated Documentation: 01/17/25 17:39. Limitations to Documentation: no limitations. Information obtained by: patient. History of Present Illness 74 year old F presents to the emergency department with the chief complaint of cough, right lateral chest pain, described as moderate, and is localized to the chest. Patient reports no radiation. Patient started experiencing this day(s) (4) and it has been constant. No relieving factors improve symptom(s), No exacerbating factors reported . Patient notes chest pain, cough and shortness of breath. Patient did receive the following treatments prior to arrival, none Related Data Home Medications ?Medication ?Instructions ?Recorded ?Confirmed naproxen sodium 220 mg capsule 220 mg PO BID PRN ##2 01/19/23 01/17/25 (Aleve) docusate sodium 100 mg capsule 100 mg PO BID PRN constipation 06/30/23 01/17/25 acetaminophen 500 mg tablet 500 mg PO BID PRN Bone pain 03/13/24 04/18/25 atorvastatin 10 mg tablet 10 mg PO DAILY #90 tabs 11/20/24 01/17/25 losartan 50 mg tablet 50 mg PO DAILY #90 tab-caps 11/20/24 01/17/25 methimazole 5 mg tablet 5 mg PO DAILY #90 tabs 11/20/24 01/17/25 amoxicillin 875 mg-potassium 1 tab PO BID #14 tabs 01/17/25 clavulanate 125 mg tablet prednisone 20 mg tablet 60 mg (3 x 20 mg) PO DAILY 4 days 01/17/25 #12 tabs Previous Rx's ?Medication ?Instructions ?Recorded atorvastatin 10 mg tablet 10 mg PO DAILY #90 tabs 11/20/24 losartan 50 mg tablet 50 mg PO DAILY #90 tab-caps 11/20/24 methimazole 5 mg tablet 5 mg PO DAILY #90 tabs 11/20/24 amoxicillin 875 mg-potassium 1 tab PO BID #14 tabs 01/17/25 clavulanate 125 mg tablet prednisone 20 mg tablet 60 mg (3 x 20 mg) PO DAILY 4 days 01/17/25 #12 tabs Allergies Allergy/AdvReac Type Severity Reaction Status Date / Time lisinopril AdvReac Intermediate Cough Verified 01/17/25 17:47 codeine AdvReac Unknown intolerant Verified 01/17/25 17:47 sucralfate (From Carafate) AdvReac Unknown Intolerant Verified 01/17/25 17:47 General Stated Complaint: Chest/Rib ELIAS: 3 Review of Systems All systems reviewed & are unremarkable except as noted in HPI and below Constitutional Constitutional: Denies chills, Denies fever(s) and Denies weakness Cardiovascular Cardiovascular: Reports chest pain and Reports dyspnea Respiratory Respiratory: Reports cough and Reports dyspnea Gastrointestinal Gastrointestinal: Denies abdominal pain, Denies nausea and Denies vomiting Neurologic Neurologic: Denies weakness Psychiatric Psychiatric: Denies depression Exam Const General: no acute distress Orientation: alert [facility] Head: normal to inspection Ears: external ears normal General nose exam: external nose normal Mouth: moist mucous membranes Eyes General: appearance normal, both eyes and all related structures Neck Neck: normal visual inspection Resp Effort & Inspection: normal respiratory effort, able to speak in complete sentences and cough Auscultation: rhonchi Cardio Jugular venous pressure: no JVD Rate: regular rate and tachycardic GI Palpation: soft and nontender Skin General skin exam: no rashes or lesions noted Neuro General: patient alert and patient oriented x3 Extrem General: normal to inspection Psych Mental Status: mental status grossly normal Course Vital Signs Vital signs: Vital Signs Temperature 37.0 C 01/17/25 17:39 Pulse 115 H 01/17/25 17:39 Respiratory Rate 20 01/17/25 17:39 Blood Pressure 141/80 H 01/17/25 17:39 Pulse Oximetry 95 01/17/25 17:39 Temperature 37.0 C 01/17/25 17:39 Temperature Source Oral 01/17/25 17:39 Pulse 115 H 01/17/25 17:39 Respiratory Rate 20 01/17/25 17:39 Blood Pressure 141/80 H 01/17/25 17:39 Blood Pressure Position Sitting 01/17/25 17:39 Pulse Oximetry 95 01/17/25 17:39 Oxygen Delivery Method Room Air 01/17/25 17:39 Oxygen Flow Rate 0 01/17/25 17:39 Pain Level 5 01/17/25 17:39 Medical Decision Making 74-year-old female who states she is asplenic, hypertension, hyperlipidemia, comes in with 4 days of persistent cough and shortness of breath and also has some right lateral chest pain when she coughs. Denies any high fevers, no recent travel, no abdominal pain or vomiting. She is speaking clearly but is intermittently coughing with a harsh sounding cough. She has no JVD or leg swelling. No calf tenderness. She does have rhonchi at the bases bilaterally. I suspect respiratory infection, will check a CBC, CMP, procalcitonin, Fluvid and chest x-ray. Given her rhonchi we will treat with a DuoNeb and Solu-Medrol while testing is pending. Labs show mild leukocytosis otherwise no significant findings. X-ray read as more likely atelectasis versus pneumonia on the left and right lobe. Given this unclear reading will obtain a CTA of the chest to evaluate for pneumonia versus PE versus atelectasis. CTA shows no PE or infiltrates, does have a small right-sided pleural effusion which I suspect is causing her pain. She feels significantly better. I am going to cover her with antibiotics for possible bronchitis. And also provide a short course of prednisone. She will follow-up with her PCP if needed and return precautions given Differential Diagnosis Differential Diagnosis: COVID, pneumonia Medical Records Medical records reviewed: Yes I reviewed the patient's medical records. Lab Data Lab results reviewed: Yes I reviewed the patient's lab results. 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 [facility] Abdominal mass (Acute) Ovarian mass (Acute) Change in stool (Acute) Rectal bleeding (Acute) Bilateral retinoschisis (Acute) Colonoscopy refused (Acute) Mammogram declined (Acute) Cerebral palsy (Acute 10/28/16) ataxia Gastroesophageal reflux disease (Acute 04/22/16) Hyperlipidemia (Acute 03/15/12) PCEq 9.9%; LDL baseline 149 Hypertension (Acute 08/06/14) goal 140/90 Hyperthyroidism (Acute 08/06/14) Dr Finch manages Osteopenia (Acute 08/06/14) Dr Finch manages Overweight (Acute 08/06/14) Vitiligo (Acute 04/27/17) Surgical History (Updated 01/07/25 @ 13:39 by Cecille Caicedo) History of colonoscopy (~12/2024) Hx of colectomy Per pt. 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) History of hysterectomy with bilateral oophorectomy (06/08/23) [facility] laparoscopic Social History Smoking/Tobacco Use Status: Never Smoking risk assessment performed?: Yes Alcohol Intake: never Substance use type: does not use Caregiver/Support person: No Household members: spouse Housing: house Number of Children: 0 Communication Needs: None Pets and animals: Yes Pets and animals: cat(s) Current gender identity: female What is your relationship status?: Panel score (0-1 are the most socially isolated patients): 1 What type of physical activity do you participate in: irregular exercise Duration: other Details: now that used to cart, has increased her activity w/ adl's. nothing routine Frequency: daily Seatbelt use: always Working smoke detector in home: Yes Fire extinguisher in home: Yes Carbon monox detector in home: Yes Firearms in home: Yes Firearms unloaded and locked: Yes Do you feel safe at home: Yes Do you feel safe in your relationship?: Yes
[2025-01-17 18:43] LABS: COVID-19 PCR Negative (Negative); Influenza A PCR Negative (Negative); Influenza B PCR Negative (Negative); RSV PCR Negative (Negative)
[2025-01-17 18:45] LABS: Source Nasopharynx
[2025-01-17 18:49] LABS: Abs Immature Grans 0.03 10^3/uL (0.0-0.06); Absolute Basophil Count 0.08 10^3/uL (0.0-0.2); Absolute Lymphocyte Count 1.39 10^3/uL (1.2-3.4); Absolute Monocyte Count 1.08 10^3/uL (0.1-0.8); Basophils % 0.7 %; Eosinophils % 0.4 %; HCT 45.1 % (36.0-46.0); HGB 14.8 g/dL (11.2-15.7); Immature Grans % 0.3 %; Lymphocytes % 12.2 %; MCH 30.3 pg (27.0-33.0); MCHC 32.8 % (32.0-36.0); MCV 92 fL (80-95); MPV 9.4 fL (8.0-11.0); Monocytes % 9.5 %; Neutrophils % 76.9 %; Platelet Count 403 10^3/uL (130-400); RBC 4.88 10^6/uL (3.93-5.22); RDW 12.4 % (11.7-14.6); RDW-SD 42.5 fL; WBC 11.42 10^3/uL (4.4-10.8)
[2025-01-17 18:51] LABS: Absolute Eosinophil Count 0.05 10^3/uL (0.0-0.7); Absolute Neutrophil Count 8.78 10^3/uL (1.2-6.7)
[2025-01-17] MEDS: Albuterol/Ipratropium 3 ML UPD VIAL UPD (18:52)
[2025-01-17] MEDS: methylPREDNISolone SUCC 125 MG VIAL IVP (18:52)
[2025-01-17] MEDS: ACETAMINOPHEN 1,000 MG/100 ML BAG 400 MG IVPB (18:55)
[2025-01-17] MEDS: Normal Saline 1,000 ML 1000 ML IV (18:55)
[2025-01-17 19:03] LABS: INR 1.1 (0.9-1.1); PTT Activated 25.6 sec (20.6-30.2); Prothrombin Time 11.4 sec (9.1-11.1)
[2025-01-17 19:16] LABS: ALT 20 U/L (14-59); AST 18 U/L (15-37); Albumin 3.8 g/dL (3.4-5.0); Alkaline Phosphatase 118 U/L (46-116); Anion Gap 11.6 mmol/L (3-11); BUN 14 mg/dL (7-18); Bilirubin, Total 0.5 mg/dL (0.2-1.0); CO2 24.4 mmol/L (21.0-32.0); CREATININE 1.1 mg/dL (0.55-1.02); Calcium 9.4 mg/dL (8.5-10.1); Chloride 105 mmol/L (98-107); Estimated GFR 52.08 (mL/min/1.73m2); Glucose 120 mg/dL (74-106); Potassium 3.8 mmol/L (3.5-5.1); Sodium 141 mmol/L (136-145); Total Protein 7.8 g/dL (6.4-8.2)
[2025-01-17 19:17] LABS: Troponin I < 4 ng/L (<or=51)
--- NOTE | 2025-01-17 19:24 | DI.VRAD_ITS ---
PROCEDURE INFORMATION: Exam: XR Chest Exam date and time: 01/17/2025 19:04 Age: 74 years old Clinical indication: Other: Cough, dyspnea TECHNIQUE: Imaging protocol: Radiologic exam of the chest. Views: 1 view. COMPARISON: CT ABDOMEN PELVIS W 10/12/2023 11:03 FINDINGS: Tubes, catheters and devices: Right chest port in satisfactory position. Lungs: Mild linear left greater than right bibasilar opacities. Pleural spaces: No significant appearing pleural effusion. No pneumothorax. Heart/Mediastinum: No cardiomegaly. Bones/joints: Chronic bony changes with no acute fracture. IMPRESSION: Mild linear left greater than right bibasilar opacities. Pattern favors subsegmental atelectasis over pneumonia. Dictated and Authenticated by: Bertha Vieyra MD. Orderin Yeni Weiner MD
[2025-01-17 19:28] LABS: Procalcitonin < 0.10 ng/mL
--- NOTE | 2025-01-17 19:30 | DI.CT_ITS ---
Exam(s) CT CHEST PE CTA EXAM: CT CHEST PE CTA CLINICAL HISTORY: dyspnea, right sided pleuritic chest pain. TECHNIQUE: Imaging Protocol: CT angiography of the chest was performed using pulmonary embolus blade col. Multi planar reconstructions were performed. CONTRAST MATERIAL: Intravenous: Omnipaque 350 Contrast volume: 100 cc COMPARISON: No exams were available for comparison FINDINGS: CHEST: PULMONARY ARTERIES: There are no intraluminal filling defects to suggest acute pulmonary emboli. LUNGS: There is platelike atelectasis in the basal segments of the left lower lobe and mild infiltrat e in the lingular segment of the left lung. Mild infiltrate also noted in the posterior basal segmen t of the right lower lobe. Trace right pleural fluid. No prominent pleural effusions.. MEDIASTINUM: There is no hilar nor mediastinal adenopathy. Both thyroid lobes are significant large a nd appear to contain multiple nodules. The enlarged left thyroid lobe extends down into the upper me diastinum. No prominent tracheal deviation by the thyroid. CARDIAC: Heart size is upper normal. There is no pericardial effusion.Caliber of the thoracic aorta is within normal limits. There is no significant shift of the interventricular septum. PARTIALLY VISUALIZED UPPERMOST ABDOMEN: No obvious findings OSSEOUS: No significant osseous lesions.No fractures.. IMPRESSION: 1. No evidence of acute pulmonary emboli. No evidence of pulmonary infarction.No evidence of aortic dissection nor pericardial effusion 2. Filtrate lung bases as described above. No significant pleural effusions. RADIATION DOSE DELIVERED: 101.05mGy.cm Total DLP DATA REPOSITORY: All CT scans at this facility are submitted to the National Radiology Data Registry (NRDR) Dose Index Registry (DIR) with the [employer] (A[employer]). RADIATION OPTIMIZATION: All CT scans at this facility use at least one of these dose optimization te chniques: automated exposure control; mA and/or kV adjustment per patient size (includes targeted exa ms where dose is matched to clinical indication); or iterative reconstruction.
[2025-01-17 20:03] LABS: Troponin I 4 ng/L (<or=51)
[2025-01-17] MEDS: Omnipaque 350 MG/ML 100 ML BTL 70 ML IJ (20:17)
[2025-01-17] MEDS: Normal Saline - Diluent 50 ML VIAL IJ (20:18)
--- NOTE | 2025-01-17 20:32 | DI.VRAD_ITS ---
PROCEDURE INFORMATION: Exam: CTA Chest With Contrast Exam date and time: 01/17/2025 20:08 Age: 74 years old Clinical indication: Other: Dyspnea, right sided pleuritic chest pain TECHNIQUE: Imaging protocol: Computed tomographic angiography of the chest with contrast. Exam focused on the arteries. 3D rendering (Not supervised by radiologist): MIP and/or 3D reconstructed images were created by the technologist. Contrast material: OMNIPAQUE 350; Contrast volume: 70 ml; Contrast route: INTRAVENOUS (IV); COMPARISON: CR XR PORTABLE CHEST AP 01/17/2025 19:04 FINDINGS: Tubes, catheters and devices: Right chest port in satisfactory position. Pulmonary arteries: No pulmonary emboli. Aorta: No aortic aneurysm. No aortic dissection. Thyroid: Thyromegaly with multiple thyroid nodules. Follow-up as per institutional protocol. Lungs: The lungs appear hyperinflated. Mild left greater than right bibasilar subsegmental atelectasis and/or scarring. Pleural spaces: Trace right pleural fluid. No pneumothorax. Heart: Mild dilation of the left atrium and ventricle suspected. Lymph nodes: No enlarged lymph nodes. Kidneys: Prominent left renal pelvis without definite caliceal dilation, question benign extrarenal pelvis. Bones/joints: Chronic bony changes with no acute fracture. Soft tissues: Prominent subcutaneous fat. IMPRESSION: 1. No pulmonary emboli are seen. 2. Mild left greater than right bibasilar subsegmental atelectasis and/or scarring. 3. Trace right pleural fluid. 4. Incidental findings as described. Dictated and Authenticated by: Bertha Vieyra MD. Orderin Yeni Weiner MD
[2025-01-17] MEDS: Albuterol HFA 8 GM 60 PUFF INH IH (20:54)
[2025-01-17] MEDS: Amoxicillin 875/Clav. 125 TAB PO (20:54)
== END 2025-01-17 21:07 | disposition home or self-care (01) ==
PROVIDERS: Emergency Provider Emergency Medicine; PCP Nurse Practitioner
DX: R07.1 Chest pain on breathing (principal); R00.0 Tachycardia, unspecified; I10 Essential (primary) hypertension; E78.5 Hyperlipidemia, unspecified; Z95.828 Presence of other vascular implants and grafts
CPT/HCPCS: 36415; 71275; 80053; 84145; 87637; 93005; 94640; 96365; 96375; 99285; 71045; 83735; 84484; 85025; 85610; 85730; 93010; J0131; J2919; J3490; J7620

== ENCOUNTER 2025-02-26 01:07 | Outpatient (RCR) | payer MEDICARE, BC, SELFPAY ==
[2025-02-26] MEDS: Normal Saline Flush 10 ML SYR IVP (13:03)
== END 2025-03-01 23:59 | disposition home or self-care (01) ==
LOC: INF 01:07
PROVIDERS: PCP Nurse Practitioner; Visit Provider Obstetrics & Gynecology Gynecologic Oncology
DX: Z45.2 Encounter for adjustment and management of vascular access device (principal)
CPT/HCPCS: 96523

== ENCOUNTER 2025-04-09 02:11 | Outpatient (CLI) | payer MEDICARE, BC, SELFPAY ==
--- NOTE | 2025-04-09 07:30 | DI.US_ITS ---
Exam(s) US THYROID EXAM: US THYROID CLINICAL HISTORY: Assess for change,multinodular thyroid,e04.2. TECHNIQUE: Ultrasound thyroid performed using standard protocol. COMPARISON: US POCUS EXAM from 10/20/2023 US US THYROID from 03/07/2024 US US NEEDLE LOCAL OTHER WO RAD from 04/02/[address] CHEST PE CTA from 01/17/2025 FINDINGS: ISTHMUS: 2 mm RIGHT LOBE: Size: 4.7 x 2.8 x 2.6 cm Echogenicity: Extremely heterogeneous. Vascularity: Normal. Nodules: Due to extreme heterogeneity of the gland, discrete nodules are difficult to precisely measure. Centrally located nodule measuring 3.8 by 1.9 by 2.0 cm. This appears of have slightly increased in size from the prior exam. This circumscribed, mixed cystic and solid, isoechoic, wider than tall. Macrocalcifications. TR 3. FNA could be consider further evaluation due to size over 2.5 cm. LEFT LOBE: Size: 6.9 x 3.2 x 2.9 cm Echogenicity: Extremely heterogeneous. Vascularity: Normal. Nodules: Nodules are difficult to discretely measure due to extreme heterogeneity of the gland. Upper pole nodule measuring 1.1 x 1.2 x 1.1 cm, slightly wider than tall, solid, hypoechoic, smoothly marginated with small peripheral calcification. Stable size from prior. TR 5. Lower pole nodule is difficult to discretely measure as it extends inferiorly and posteriorly in the neck. Solid, isoechoic, wider than tall, smoothly marginated and contains punctate echogenic foci, TR 4. OTHER FINDINGS: no adenopathy. IMPRESSION: Mild increase in size of right-sided thyroid nodule, TR 3. Roughly stable appearance of left-sided nodules, TR 4 and TR 5. Nodules were previously biopsied. DATA REPOSITORY:
[2025-04-09 17:14] LABS: Glucose Negative (Negative)
[2025-04-09 17:21] LABS: WBC >50 HPF (0-5)
[2025-04-09 17:23] LABS: C & S Indicated? Yes
== END 2025-04-09 02:12 | disposition home or self-care (01) ==
LOC: DI 02:11 → LBO 15:59
PROVIDERS: Family Medicine; PCP Nurse Practitioner Family; Visit Provider Otolaryngology
DX: E04.2 Nontoxic multinodular goiter (principal); R30.0 Dysuria
CPT/HCPCS: 76536; 81003; 81015; 87086

== ENCOUNTER 2025-04-10 01:46 | Outpatient (RCR) | payer MEDICARE, BC, SELFPAY ==
[2025-04-10] MEDS: Normal Saline Flush 10 ML SYR IVP (13:07)
== END 2025-05-01 23:59 | disposition home or self-care (01) ==
LOC: INF 01:46
PROVIDERS: PCP Nurse Practitioner Family; Visit Provider Obstetrics & Gynecology Gynecologic Oncology
DX: C56.9 Malignant neoplasm of unspecified ovary (principal)
CPT/HCPCS: 96523

== ENCOUNTER 2025-05-22 00:45 | Outpatient (RCR) | payer MEDICARE, BC, SELFPAY ==
[2025-05-22] MEDS: Normal Saline Flush 10 ML SYR IVP (13:07)
== END 2025-06-01 23:59 | disposition home or self-care (01) ==
LOC: INF 00:45
PROVIDERS: PCP Nurse Practitioner Family; Visit Provider Obstetrics & Gynecology Gynecologic Oncology
DX: Z45.2 Encounter for adjustment and management of vascular access device (principal)
CPT/HCPCS: 96523

== ENCOUNTER 2025-05-28 11:03 | Outpatient (REF) | payer MEDICARE, BC, SELFPAY ==
[2025-05-28 20:48] LABS: WBC >50 HPF (0-5)
== END 2025-05-28 11:04 | disposition home or self-care (01) ==
LOC: LBN 11:03
PROVIDERS: PCP Nurse Practitioner Family; Visit Provider Nurse Practitioner Family
DX: R35.0 Frequency of micturition (principal); R82.998 Other abnormal findings in urine; R31.29 Other microscopic hematuria
CPT/HCPCS: 81015; 87086

== ENCOUNTER 2025-06-16 01:45 | Outpatient (CLI) | payer MEDICARE, BC, SELFPAY ==
[2025-06-16 10:37] LABS: Glucose Negative (Negative)
[2025-06-16 10:50] LABS: C & S Indicated? No; RBC Negative HPF (0-2)
[2025-06-16 11:01] LABS: TSH (W/Ref FT4) 1.37 uIU/mL (0.36-3.74)
== END 2025-06-16 01:46 | disposition home or self-care (01) ==
LOC: LBO 01:45
PROVIDERS: Absent Provider Nurse Practitioner Family; PCP Nurse Practitioner Family; Referring Provider Nurse Practitioner Family; Visit Provider Nurse Practitioner Family
DX: E04.2 Nontoxic multinodular goiter (principal); R31.9 Hematuria, unspecified
CPT/HCPCS: 36415; 81003; 81015; 84443

== ENCOUNTER 2025-08-08 03:30 | Emergency (ER) | payer MEDICARE, BC, SELFPAY ==
[2025-08-08] VITALS (30 sets, daily range): BP systolic 111–135; BP diastolic 52–76; PULSE 78–120; RESP 10–22; TEMP 36.5; O2SAT 84–98
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
[2025-08-08] MEDS: LORazepam 0.5 MG TAB PO (04:01)
--- NOTE | 2025-08-08 05:30 | NUR.NOTE ---
Nursing Note: Wound care performed to patient's right hand, cleansed with Sterile Water, Xeroform applied, wrapped with Coban.
--- NOTE | 2025-08-08 11:45 | RT.EKG_ITS ---
APPROVED REPORT Exam: Resting ECG Reason for Exam: indegestion Patient Location: E HR:79 bpm ECG Measurements Heart Rate 79 AXIS TN 162 P -1 QRSd 83 QRS 15 QT 397 T 15 QTc 455 Conclusion Sinus rhythm...normal P axis, V-rate 60- 99 Low voltage, precordial leads...precordial leads <1.0mV No STEMI with
[2025-08-08] MEDS: Calcium Carbonate *TUMS* 500 MG CHEW 1000 MG PO (12:02)
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
== END 2025-08-08 12:30 | disposition home or self-care (01) ==
PROVIDERS: Emergency Provider General Practice; PCP Nurse Practitioner Family
DX: S00.83XA Contusion of other part of head, initial encounter (principal); Y09 Assault by unspecified means
CPT/HCPCS: 99283 ×2; 93005; 93010

== ENCOUNTER 2025-08-16 03:32 | Observation (INO) | payer MEDICARE, BC, SELFPAY ==
[2025-08-16] VITALS (36 sets, daily range): BP systolic 111–151; BP diastolic 40–79; PULSE 70–116; RESP 10–35; TEMP 36.5–37.2; O2SAT 13–100
--- NOTE | 2025-08-16 03:30 | RT.EKG_ITS ---
APPROVED REPORT Exam: Resting ECG Reason for Exam: Patient Location: E HR:107 bpm ECG Measurements Heart Rate 107 AXIS [place] 144 P 76 QRSd 91 QRS 57 QT 365 T 69 QTc 486 Conclusion Sinus tachycardia...rate> 99 Low voltage, precordial leads...precordial leads <1.0mV PHysician: No STEMI
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
[2025-08-16] MEDS: Ondansetron 4 MG/2 ML VIAL IVP ×2 (03:48→17:43)
[2025-08-16] MEDS: ACETAMINOPHEN 1,000 MG/100 ML BAG 400 MG IVPB (03:48)
[2025-08-16] MEDS: Normal Saline 500 ML IV (03:48)
[2025-08-16] MEDS: LORazepam 20 MG/10 ML VIAL IVP ×2 (04:00→18:36)
[2025-08-16 05:03] LABS: Abs Immature Grans 0.04 10^3/uL (0.0-0.06); HCT 36.7 % (36.0-46.0); HGB 12.0 g/dL (11.2-15.7); Immature Grans % 0.4 %; MCH 28.4 pg (27.0-33.0); MCHC 32.7 % (32.0-36.0); MCV 87 fL (80-95); MPV 9.6 fL (8.0-11.0); Platelet Count 357 10^3/uL (130-400); RBC 4.23 10^6/uL (3.93-5.22); RDW 13.7 % (11.7-14.6); RDW-SD 43.8 fL; WBC 10.70 10^3/uL (4.4-10.8)
[2025-08-16 05:21] LABS: INR 1.4 (0.9-1.1); Lipase 22 U/L (<53); PTT Activated 25.9 sec (20.6-30.2); Prothrombin Time 13.8 sec (9.1-11.1)
[2025-08-16 05:22] LABS: Troponin I 4 ng/L (<35)
[2025-08-16 05:23] LABS: ALT 13 U/L (10-49); AST 19 U/L (<34); Albumin 3.5 g/dL (3.4-5.0); Alkaline Phosphatase 93 U/L (46-116); Anion Gap 10.2 mmol/L (3-11); BUN 19 mg/dL (9-23); Bilirubin, Total 1.10 mg/dL (0.2-1.2); CO2 22.8 mmol/L (20.0-31.0); Calcium 8.0 mg/dL (8.3-10.6); Chloride 106 mmol/L (98-107); Glucose 91 mg/dL (74-106); Potassium 3.5 mmol/L (3.5-5.1); Sodium 139 mmol/L (136-145); Total Protein 6.1 g/dL (5.7-8.2)
[2025-08-16 05:34] LABS: Glucose Negative (Negative)
[2025-08-16 05:45] LABS: C & S Indicated? Yes; WBC >50 HPF (0-5)
[2025-08-16] MEDS: Omnipaque 350 MG/ML 100 ML BTL IJ (06:22)
[2025-08-16] MEDS: Normal Saline Flush 10 ML SYR IVP ×3 (06:23→20:16)
[2025-08-16] MEDS: Normal Saline - Diluent 50 ML VIAL IJ (06:23)
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
[2025-08-16] MEDS: cefTRIAXone 2 GM/50 ML BAG IVPB (06:41)
[2025-08-16 07:05] LABS: Troponin I 5 ng/L (<35)
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
[2025-08-16 08:08] LABS: Troponin I 5 ng/L (<35)
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
[2025-08-16] MEDS: Losartan 50 MG TAB PO (10:22)
[2025-08-16] MEDS: Escitalopram 10 MG TAB PO (10:22)
[2025-08-16] MEDS: methIMAzole 5 MG TAB PO (10:22)
[2025-08-16] MEDS: Enoxaparin 40 MG/0.4 ML SYR SC (10:23)
[2025-08-16] MEDS: DEXTROSE 5%-LACTATED RINGERS 1,000 ML 125 ML IV ×2 (11:25→20:15)
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
[2025-08-16] MEDS: Mylanta Suspension 30 ML CUP PO (17:02)
[2025-08-16] MEDS: Acetaminophen 325 MG TAB 650 MG PO (17:51)
[2025-08-16] MEDS: HYDROmorphone 2 MG/ML SYR 0.5 MG IVP (18:35)
[2025-08-17] VITALS (8 sets, daily range): BP systolic 88–135; BP diastolic 52–75; PULSE 67–75; RESP 16–18; TEMP 36–36.9; O2SAT 93–96
[2025-08-17] MEDS: DEXTROSE 5%-LACTATED RINGERS 1,000 ML 125 ML IV ×3 (04:28→22:29)
[2025-08-17] MEDS: cefTRIAXone 2 GM/50 ML BAG IVPB (05:38)
[2025-08-17 06:40] LABS: INR 1.4 (0.9-1.1); Prothrombin Time 14.0 sec (9.1-11.1)
[2025-08-17 07:01] LABS: Anion Gap 8.6 mmol/L (3-11); BUN 17 mg/dL (9-23); CO2 26.4 mmol/L (20.0-31.0); Calcium 8.3 mg/dL (8.3-10.6); Chloride 106 mmol/L (98-107); Glucose 107 mg/dL (74-106); Potassium 3.6 mmol/L (3.5-5.1); Sodium 141 mmol/L (136-145)
[2025-08-17] MEDS: methIMAzole 5 MG TAB PO (07:39)
[2025-08-17] MEDS: Enoxaparin 40 MG/0.4 ML SYR SC (07:39)
[2025-08-17] MEDS: Omeprazole 20 MG CAPCR 40 MG PO (07:39)
[2025-08-17] MEDS: Escitalopram 10 MG TAB PO (07:39)
[2025-08-17] MEDS: Normal Saline Flush 10 ML SYR IVP ×2 (07:40→19:56)
[2025-08-17] MEDS: Losartan 50 MG TAB PO (07:40)
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
[2025-08-17] MEDS: Fosfomycin Tromethamine 3 GM PACKET PO (15:22)
--- NOTE | 2025-08-17 20:45 | W.PM.PROGNOT ---
Date of Service Date of service: 08/17/25 Time of Service: 17:30 Assessment and Plan Assessment and plan (1) Malignancy not in remission: Status: Acute Assessment and plan: 75 yo woman with metastatic cancer in her peritoneal cavity and probably above the diaphragm as well. Having months of colicky abdominal pain that is slowly progressing. Overall, in the patient's own words today, none of this is acute or new. Her symptoms are likely partial obstructions in multiple locations from advancing disease. Surgery is going to sign off at this time. Continue to recommend palliative care discussions, code status discussions, goals of care discussions and role for hospice. Discuss with her oncology team about options . . . but probably ideal to get everything lined up sooner than later. I suspect she will return with a malignant obstruction at some point in the near future. Does not need to followup with us after discharge. Subjective Subjective Interval history since last seen: No overnight events. Passing gas. Having bowel movements. Patient calm about knowing the cancer is back. I've suspected that was probably the case and I'm not surprised. Today she endorses that she's been feeling not myself for probably a couple of months but has been ignoring it. The pains in her abdomen come and go and she's been having difficulty having bowel movements for many months. She says I just came in the other night because I was frustrated and sick of dealing with it. She is ready to go home tomorrow and wants to go home tomorrow. Tolerating her diet without any issues. She says I'm ready to talk about the cancer coming back with my cancer doctors and see what the options are. There might not be any and I understand that. Exam Narrative Exam Narrative: Gen: Calm, comfortable, watching TV and interactive Psych: Calm mood and affect, pleasant and with good insight and understanding Abdomen: Soft, mild distention, no tenderness. Large surgical scars. Objective Last Vital Signs Temp 96.8 F L 08/17/25 19:40 Pulse 70 08/17/25 19:40 Resp 16 08/17/25 19:40 BP 100/61 08/17/25 19:40 Pulse Ox 94 08/17/25 19:40 Laboratory Results - last 24 hr 08/16/25 08/17/25 08/17/25 05:25 06:00 06:05 PT 14.0 H INR 1.4 H Sodium 141 Potassium 3.6 Chloride 106 Carbon Dioxide 26.4 Anion Gap 8.6 BUN 17 Creatinine 0.9 Est GFR (CKD-EPI 2020) 59.88 Glucose 107 H Calcium 8.3 Urine Color Yellow Urine Clarity Cloudy Urine pH 6.0 Ur Specific [place] >= 1.030 H Urine Protein 100 H Urine Ketones 15 H Urine Blood Moderate H Urine Nitrite Negative Urine Bilirubin Negative Urine Urobilinogen 0.2 Ur Leukocyte Esterase Large H Urine WBC >50 H Ur Culture Indicated? Yes Urine Glucose Negative Time Spent with Patient Time Spent with Patient: 25-34 minutes Time was spent: preparing to see the patient(eg.review tests), obtaining and/or reviewing separately otained hiistory, referring, communicating with other health ambulatory care coordinator, indepentently interpreting results and counseling the patient
[2025-08-18 00:07] VITALS: BP 108/57; PULSE 71; RESP 17; TEMP 36; O2SAT 95
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
[2025-08-18] MEDS: DEXTROSE 5%-LACTATED RINGERS 1,000 ML 125 ML IV (05:58)
[2025-08-18] MEDS: Docusate Sodium 100 MG CAP PO (06:03)
[2025-08-18] MEDS: Polyethylene Glycol 3350 17 GM PACKET PO (06:03)
[2025-08-18 06:58] LABS: Abs Immature Grans 0.02 10^3/uL (0.0-0.06); HCT 32.9 % (36.0-46.0); HGB 10.9 g/dL (11.2-15.7); Immature Grans % 0.3 %; MCH 29.6 pg (27.0-33.0); MCHC 33.1 % (32.0-36.0); MCV 89 fL (80-95); MPV 10.5 fL (8.0-11.0); Platelet Count 330 10^3/uL (130-400); RBC 3.68 10^6/uL (3.93-5.22); RDW 14.0 % (11.7-14.6); RDW-SD 45.7 fL; WBC 6.42 10^3/uL (4.4-10.8)
[2025-08-18 07:12] LABS: Anion Gap 8.3 mmol/L (3-11); BUN 14 mg/dL (9-23); CO2 25.7 mmol/L (20.0-31.0); Calcium 7.7 mg/dL (8.3-10.6); Chloride 108 mmol/L (98-107); Glucose 101 mg/dL (74-106); Magnesium 1.5 mg/dL (1.6-2.6); Potassium 3.3 mmol/L (3.5-5.1); Sodium 142 mmol/L (136-145)
[2025-08-18 07:53] VITALS: BP 109/75; PULSE 87; RESP 16; TEMP 36.9; O2SAT 94
[2025-08-18] MEDS: Omeprazole 20 MG CAPCR 40 MG PO (08:31)
[2025-08-18] MEDS: Enoxaparin 40 MG/0.4 ML SYR SC (08:31)
[2025-08-18] MEDS: Atorvastatin 10 MG TAB PO (08:31)
[2025-08-18] MEDS: methIMAzole 5 MG TAB PO (08:32)
[2025-08-18] MEDS: Escitalopram 10 MG TAB PO (08:32)
[2025-08-18] MEDS: Normal Saline Flush 10 ML SYR IVP (08:33)
--- NOTE | 2025-08-18 09:17 | PTTR_ITS ---
PT Notes Visit Reasons: UTI, Abdominal Pain, Vomiting, Metastatic Cancer Physical Therapy Treatment Note Date: 08/18/2025 Precautions: Standard. Falls. Activity as tolerated. Subjective: Hesitant about moving but when assured that she will be given the help that she needed, was agreeable to trying out walking and the stairs. Denied abdominal pain throughout. Objective: General Observation: IV through L UE Mental Status: Alert and oriented x4. able to follow mulitple step commands. Pain: Denied abdominal pain Vital Signs: Closely monitored by nursing staff Bed Mobility/Transfers: Minimal cueing provided for use of B hands as needed for support, movement sequence, AD management, and posture to reduce fall risk and minimize pain report sit-stand from bedside recliner: supervision with FWW sit-stand onto recliner: supervision with FWW sit-stand from wheelchair: contact guard assist with FWW Gait: 25 feet with FWW with stand by assist. Step height and length asymmetric, no heel strike on the L foot due to spastic gait from pre-existing cerebral palsy. No LOB. Wheelchair follow provided for safety. Verbal cueing provided for walker management and efficient weight distribution. Stairs: Up and down 6 x 4-inch steps and 4 x 6-inch steps while holding onto B rails for support with step-to gait pattern. Minimal cueing for hand placement, weight distribution thorugh BUE, and incrased hip/knee flexion during each ascent. Balance: Static Sitting: Normal Dynamic Sitting: Good Static Standing: Fair Dynamic Standing: Poor Assessment: Patient verbalized that she feels that she almost is at baseline mobility level and with the help of her friend who will pick her up today, should be able to manage the entrance steps and should slowly move indoors with use of her 4WW. She is agreeable to PT for continued functional mobility training at home to regain modified independence. Also prived assistance with transfers into and out of the bathroom for a bowel movement. Plan of Care/Treatment Plan: 1-2x/day, 7 days/week x 1 week. Plan of care has been reviewed with the SOCIAL SERVICE MANAGER providing the service under Physical Therapy direction. Initiate Physical Therapy intervention for strengthening, bed mobility, transfers, gait, stairs, balance training, use of assistive device. DISCHARGE RECOMMENDATIONS: Home with Home Health Services TREATMENT CODE/TIME: 54881 x 48 minutes for 3 units (9:17-10:05).
--- NOTE | 2025-08-18 09:46 | W.NUTRFU ---
Date of service: 08/18/25 Time of Service: 09:46 Nutrition Note NOTE: chart reviewed - pt weight stable recently with good po intake. Potassium low today and ordered this morning. Tolerating regular diet order. Kitchen staff getting menu orders/identifying preferences while admitted. no acute nutrition concerns. Will continue to monitor weight, intake, nutrition related labs. No nutrition intervention plaaned this admission. Time Spent in Nutritional Counseling and Treatment: 5 min
[2025-08-18] MEDS: Potassium Chloride Liquid 20 MEQ PKT 40 MEQ PO (10:03)
[2025-08-18] MEDS: MAGNESIUM SULFATE 2 GM/50 ML BAG IV_INF (10:03)
[2025-08-18 11:36] VITALS: BP 101/58; PULSE 69; RESP 16; TEMP 36.7; O2SAT 95
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
--- NOTE | 2025-08-18 13:12 | NUR.NOTE ---
Nursing Note: At 1:15pm pt given discharge papers reviewed all instructions with the pt and family verbalized understanding of all pt discharged via WC with all belongings pt offered no complaints
--- NOTE | 2025-08-18 16:00 | CMDISCH_ITS ---
Date of service: 08/18/25 Time of Service: 16:00 LACE Index Scoring Tool Questions: Length of Stay (in days): 2 Was the patient admitted via the E.D.?: Yes Comorbidities: Metastatic Solid Tumor E.D. 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 Her friend drove her home via private vehicle. She will follow up with her PCP, Oncologist, and her discharge plan of care. Patient/Family Education Needs: Review discharge instructions and limitations, discussion of self care needs including ask me three. Services Needed at Discharge: Home Health Care Services (resumption of HH PT, OT, MOBILITY ARCHITECT) SDOH Health Related Social Needs: Health related social needs personal safety daily acti vities lonely/isolated Health related social needs details inpatient seeking treatment Health related social needs details: inpatient seeking treatment
--- NOTE | 2025-08-23 07:52 | NUR.NOTE ---
Access chart to reconcile EKG orders with EKG's in [facility]. Duplicate order cancelled. Nursing Note:
== END 2025-08-18 13:25 | disposition home health service (06) ==
LOC: ER 03:43 → MS 09:15
PROVIDERS: Admitting Provider Family Medicine; Emergency Provider Student in an Organized Health Care Education/Training Program; PCP Nurse Practitioner Family; Responsible Provider Nurse Practitioner Family; Visit Provider Family Medicine
DX: N39.0 Urinary tract infection, site not specified (principal); F41.9 Anxiety disorder, unspecified; B96.20 Unspecified Escherichia coli [E. coli] as the cause of diseases classified elsewhere; C78.6 Secondary malignant neoplasm of retroperitoneum and peritoneum; Y09 Assault by unspecified means; Z90.81 Acquired absence of spleen; Z90.49 Acquired absence of other specified parts of digestive tract; G80.9 Cerebral palsy, unspecified; K21.9 Gastro-esophageal reflux disease without esophagitis; E78.00 Pure hypercholesterolemia, unspecified; R10.84 Generalized abdominal pain; Z79.899 Other long term (current) drug therapy; R45.89 Other symptoms and signs involving emotional state; Z60.8 Other problems related to social environment; E04.2 Nontoxic multinodular goiter; D84.821 Immunodeficiency due to drugs; Z85.43 Personal history of malignant neoplasm of ovary; E78.5 Hyperlipidemia, unspecified; I10 Essential (primary) hypertension; M85.80 Other specified disorders of bone density and structure, unspecified site; R18.8 Other ascites; S00.83XD Contusion of other part of head, subsequent encounter
CPT/HCPCS: 00123; 36415; 74177; 80048; 80053; 83690; 87077; 93005; 96365; 96366; 96367; 96375; 97162; 97530; 99223; 99232; 99285; J1650; 71260; 81003; 81015; 83605; 83735; 84484; 85025; 85610; 85730; 87086; 87186; 93010; 99222; 99239; G0378; J0131; J0696; J1171; J2060; J2405; J3475; J3490